=== PATIENT | female | born 1945 | race Caucasian/White ===

== ENCOUNTER → 2018-01-30 12:45 | Outpatient (CLI) | payer MEDICARE, OTHER, SELFPAY ==
[2018-01-28 14:23] VITALS: BMI 28.8
--- NOTE | 2018-01-30 12:47 | ECHOD_ITS ---
Reason For Study: Arrhythmia Procedure This was a 2D Doppler, Color Flow transthoracic echocardiogram. Exam performed in department. Left Ventricle Normal size and thickness. The estimated ejection fraction is 65 %. Stage 1 diastolic dysfunction. No regional wall motion abnormalities noted. Right Ventricle Normal size and thickness. Normal systolic function. Atria Normal left atrium. Normal right atrium. Normal atrial septum. Mitral Valve The mitral valve is structurally normal. No prolapse or stenosis seen. Trivial mitral valve insufficiency. Tricuspid Valve Normal tricuspid valve. Trivial tricuspid valve insufficiency. Right ventricular systolic pressure estimated to be 24 mmHg. Aortic Valve Trisinus/trileaflet aortic valve. Normal aortic valve. Pulmonic Valve Normal pulmonic valve. Great Vessels Normal aortic root. Normal arch. Normal inferior vena cava. Inferior vena cava collapse with sniff. Pericardium/Pleural No pericardial effusion. MMode/2D Measurements & Calculations LVIDd: 3.0 cm IVSd: 0.87 cm Ao root diam: 3.2 cm LVIDs: 2.1 cm LVPWd: 1.2 cm LA dimension: 2.8 cm RVDd: 3.2 cm FS: 31.2 % LAV(MOD-bp): 28.3 ml LA A4 area: 12.2 cm2 RA A4 area: 13.6 cm2 LAV(MOD-bp) Indexed: 16.0 ml/m2 LAV(MOD-sp2): 27.1 ml LAV(MOD-sp4): 27.0 ml Time Measurements MV dec time: 0.22 sec Doppler Measurements & Calculations MV E max gregg: 46.4 cm/sec Lat Peak E' Gregg: 6.3 cm/sec Med Peak E' Gregg: 5.8 cm/sec MV A max gregg: 88.4 cm/sec E/E' lat: 7.3 E/E' med: 8.0 MV E/A: 0.52 MV V2 max: 92.5 cm/sec MV P1/2t max gregg: 56.5 cm/sec Ao V2 max: 101.9 cm/sec MV max P.4 mmHg MV P1/2t: 75.1 msec Ao max P.2 mmHg MV V2 mean: 51.3 cm/sec MV dec slope: 220.4 cm/sec2 Ao V2 mean: 70.7 cm/sec MV mean P.3 mmHg MVA(P1/2t): 2.9 cm2 Ao mean P.2 mmHg MV V2 VTI: 16.7 cm Ao V2 VTI: 20.4 cm LV V1 max: 75.5 cm/sec PA V2 max: 77.8 cm/sec TR max gregg: 210.9 cm/sec LV V1 max P.3 mmHg TR max P.8 mmHg LV V1 mean P.0 mmHg LV V1 mean: 46.0 cm/sec LV V1 VTI: 18.5 cm Interpretation Summary The estimated ejection fraction is 65 %. Stage 1 diastolic dysfunction. Trivial mitral valve insufficiency. Trivial tricuspid valve insufficiency. Right ventricular systolic pressure estimated to be 24 mmHg. There is no comparison study available. Ordering Physician: Romeo Asencio Referring Physician: Meri Machado Performed By: Suman Carroll, [facility]
[2018-01-30 14:47] LABS: AST(SGOT) 16 U/L (15-37); Alanine Aminotransfer ALT/SGPT 32 U/L (13-56); Albumin, Serum 3.9 g/dL (3.2-5.0); Alkaline Phosphatase 41 U/L (45-117); Bilirubin, Direct 0.12 mg/dL (0.00-0.30); Cholesterol 285 mg/dL (200); Globulin 3.7 g/dL (2.2-4.2); High Density Lipoprotein 41 mg/dL; Protein, Total 7.6 g/dL (6.4-8.2); Triglycerides 180 mg/dL; Very Low Density Lipoprotein 36 mg/dL (5-40)
--- OUTSIDE RECORDS SUMMARY | 2018-03-27 16:10 | XMS RPT_ITS ---
:1945 Author Organization [facility] Care Team Providers Name Role Phone MERI ANDRE Referring Unavailable MERI ANDRE Attending Unavailable MERI ANDRE Referring Unavailable MERI ANDRE Referring Unavailable TYLER HDZ Attending Unavailable TYLER HDZ Referring Unavailable JOSHUA SUTTON ([facility]) Referring Unavailable MIRTA LEOS ([facility]) Attending Unavailable MERI ANDRE Attending Unavailable NICOLE BETANCOURT PAC Admitting Unavailable NICOLE BETANCOURT PAC Attending Unavailable NICOLE BETANCOURT PAC Primary Care Unavailable Nato Chaves Attending Unavailable Nato Chaves Referring Unavailable Ganta, Meri Primary Care Unavailable Romeo Asencio Attending Unavailable Ganta, Meri Referring Unavailable Romeo Asencio Attending Unavailable Romeo Asencio Referring Unavailable Ganta, Meri Primary Care Unavailable Romeo Asencio Attending Unavailable Romeo Asencio Referring Unavailable Ganta, Meri Primary Care Unavailable Romeo Asencio Attending Unavailable Romeo Asencio Referring Unavailable Ganta, Meri Primary Care Unavailable Romeo Asencio Consulting Unavailable PROBLEMS PROBLEMS DATE TYPE CONDITION / CODE ATTENDING STATUS SOURCE 01/31/2018 Unknown R00.0 - Tachycardia, Romeo Asencio Active [place] unspecified / Community R00.0(ICD-10) Hospital Repository 01/31/2018 Unknown I10 - Essential Romeo Asencio Active [place] (primary) [facility] hypertension / Hospital I10(ICD-10) Repository 01/31/2018 Unknown Z01.810 - Encounter Romeo Asencio Active [place] for preprocedural [facility] cardiovascular Hospital examination / Repository Z01.810(ICD-10) 01/31/2018 Unknown E78.5 - Romeo Asencio Active [place] Hyperlipidemia, Community unspecified / Hospital E78.5(ICD-10) Repository 11/05/2017 Active Other abnormal and NA Active [place] inconclusive [facility] Main findings on [place] diagnostic imaging Repository of breast / R92.8(ICD-10) 10/16/2017 Active Encounter for NA Active [place] screening mammogram Clinic Main for malignant [place] neoplasm of breast / Repository Z12.31(ICD-10) 09/05/2017 Active 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) drug Clinic Main therapy / [place] Z79.899(ICD-10) Repository PROCEDURES PROCEDURES No Procedure Records FoundRESULTS RESULTS OPERATIVE REPORT Observed: 02/04/2018 Status: F Source: [place] 2:22 PM [facility] HOSPITAL REPOSITORY [facility] Medical Records Department [address] [place] [address] Operative Report 02/04/18 1158 MR#: [id number] Acct: [id number] Name: PHIL OLSEN Rep #: [id number] : 1945 72 From: Nato Chaves MD PCP: Meri Andre MD Status: REG [facility] Location: [place] [address]-1 Report of Operation Date of Procedure: 02/04/18 Pre-Operative Diagnosis: Right knee medial meniscus tear. Right knee medial tibial plateau stress fracture. Right knee chondromalacia. Left knee osteoarthritis Post-Operative Diagnosis: Right knee medial meniscus tear. Right knee medial tibial plateau stress fracture. Right knee chondromalacia. Right knee medial plica. Left knee osteoarthritis Surgery/Procedure Performed:: Arthroscopic right knee surgery. 1. Partial medial meniscectomy. 2. Patellofemoral and medial compartment chondroplasty. 3. Arthroscopic assisted fixation of the medial tibial plateau fracture. 4. Plica resection medial. 5. Left knee cortical steroid injection Description of Surgical Findings:: See operative report senior linux unix administrator: Jaime Hale Type of Anesthesia:: General Anesthesiologist: Zachariah Smiley Special Medications: 2 g Ancef Specimen's removed: None Estimated Blood Loss (mL): 5 Fluids Replaced: 1100 ml Description of Procedure: On the date of the procedure, the patient's L lower extremity was marked in the preoperative area. Patient was brought back to the operating room where they were transferred to the bed. Anesthesia assumed control of the C-spine airway and administered anesthetic. All bony prominences were identified and well-padded and the L leg was placed in the arthroscopic leg bailey. The contralateral leg was then draped over the bed and well-padded. There was padding underneath both sciatic nerves. The foot of the bed was then dropped and the L leg was prepped in a sterile fashion. The surgeon then scrubbed. Upon reentering the room, the operative leg was draped in a standard orthopedic fashion. A timeout was called, everyone agreed upon the side, the site, the procedure to be performed, patient's identity and antibiotics given. Incisions were marked out for the medial and lateral infrapatellar portals. Esmarch bandage was then used to exsanguinate the leg and tourniquet was placed at 250 mmHg. At this time, the lateral portal incision was made in a vertical fashion. The trocar was placed into the joint. The camera was then placed and the patellofemoral joint was visualized. The patella did appear to have grade 2-3 chondral changes. The trochlea appeared to have grade 1-2 chondral changes. We then directed our attention to the medial gutter where there was no foreign body was noted however, and it getting over to the medial compartment and gutter we did note a large medial plica.. Then directed our attention to the medial joint compartment. There were grade 2 chondral changes on the medial distal femur, grade 3 with areas of grade 4 posterior medially chondral changes on the medial tibial plateau. The medial meniscus had Plex tear of the posterior medial meniscus. The medial portal was then placed under direct visualization using a spinal needle an 11 blade scalpel. Once this was done a probe was placed in the joint and the meniscus was probed finding the complex tear. There were cartilage flaps in the medial distal femoral condyle with free edges. The biters and lalo were then used sequentially to debriding get rid of any free edges that could be a source of pain and catching in the meniscus tear. The shaver was then used to clean up the cartilage flaps with free edges back to stable edges. Once we felt medial meniscus tear was adequately debrided, we again visualized the joint and noted the meniscus tear was adequately debrided. Attention was then turned towards the notch where the anterior cruciate ligament was tacked. PCL was visualized and appeared intact. Attention was then directed towards the lateral compartment where the lateral distal femur had minimal chondral changes, the lateral proximal tibia had to chondral changes. The lateral meniscus had small tears. We then directed our attention to the lateral gutter, which was visualized and no free bodies were noted. At this time the wound was copiously irrigated out with normal saline with epinephrine. Based on the preoperative review of the patient's R knee MRI, the location of the bone marrow lesion, consistent with an insufficiency or stress fracture in the MTC was identified. Preoperative surgical planning allowed for determination of the optimal method for assessing the lesion. Intraoperatively, image fluoroscopy combined with bone targeting instrumentation from [employer] was used to guide surgical instruments into the proximity of the subchondral MTC fracture. The standard repair methodology was used to treat the subchondral bone defect in the MTC. Image fluoroscopy was utilized to confirm accurate insertion of the active port injection cannula into the subchondral fracture. After insertion, fracture stabilization was performed by injecting 2 cc of [employer] bone substitute material into the MTC. Image fluoroscopy was used to monitor the injection process and ensure injection of the bone substitute into the subchondral bone so that the bile material flowed into the fracture site to stabilize the fracture and facilitate fracture repair. After this was performed the arthroscope was placed back into the knee and a diagnostic arthroscopy was performed to ensure no intra-articular cement was encountered. None was encountered. While we were made for the cement to cure we also performed a chondroplasty of the patellofemoral compartment. Also noted on our initial diagnostic arthroscopy was a medial plica. This was debrided using the shaver. Once this was completely removed we were able to see the medial compartment and lateral compartment where no evidence of cement was noted. Wound was sam irrigated out normal saline with epinephrine. The camera was removed from the knee. The wound was closed with 4-0 nylon and 0.5% Marcaine and epinephrine were injected for local anesthetic. Once the cement had appropriately cured the trocar was removed and the portal was closed. Xeroform was placed over the incision. Sterile dressing was placed. Compressive dressing was placed. Tourniquet was let down. At this time attention was directed to the left knee. Using the inferior lateral patellar portal to milliliters of Kenalog and 4 mL of Marcaine 0.5% were injected into the left knee. Sterile conditions were used. Patient was awakened by anesthesia patient was transferred to the PACU for recovery in stable condition. Postoperative plan: Patient will be made weightbearing for 2 weeks. He will come to the office in 2 weeks for postoperative wound check and suture removal. If he is doing well that time he can follow-up as needed. The physician pathology assistant was vital throughout the duration of this case. He was helpful in positioning the patient. Is helpful in positioning the limb during the procedure as well as during the fixation of the fracture. He was also vital and closure of the wound under my direct supervision. Grafts/Implants Used: [employer] bone cement 2 mL - Complications None - Admit VTE Documentation VTE Present on Admission: No VTE Mechan Device Prophylaxis: SCD's, Thigh High VANESSA Hose VTE Pharm Prophylaxis ordered?: Yes 02/04/18 1422 <Electronically signed by Nato Chaves MD> Date Nato Chaves MD CC: Meri Andre MD; Nato Chaves MD Signed KNEE 1 OR 2 VIEWS Observed: 02/04/2018 Status: F Source: [place] 4:16 AM [facility] REPOSITORY [facility] Imaging Services [address] [place] [address] Knee 1 or 2 Views MR#: [id number] Acct: [id number] Name: PHIL OLSEN Rep #: [id number] : 1945 F 72 From: Je Ramirez MD PCP: Meri Andre MD Status: [facility] Study: Knee 1 or 2 Views Date of Exam: 02/04/18 Exam# [id number] Ordering Dr: Nato Chaves MD STUDY: X-RAY - RIGHT KNEE REASON FOR EXAM: Female, 72 years old. Right knee arthroscopy TECHNIQUE: 1 view view(s) of the knee. COMPARISON: None. FINDINGS: The C-arm is used. There is a metallic density (nail) projecting over the proximal ends of the fibula and tibia and 2 curvilinear metallic densities (wires) projecting over the distal ends of the femur Electronically Signed: Je Ramirez MD at 5:39 EST Tel , Service support , RAD/Knee 1 or 2 Views CC: Meri Andre MD; Nato Chaves MD Flat Bed Knitter: Signed STRESS TEST ECHO W/O Observed: 02/03/2018 Status: F Source: [place] CONTRAST 9:42 AM [facility] REPOSITORY [facility] Cardiovascular Services [address] [place] [address] Stress Test Echo w/o Contrast MR#: [id number] Acct: [id number] Name: PHIL OLSEN Rep #: [id number] : 1945 72 From: Romeo Asencio MD Primary Care: Meri nAdre MD Status[facility] Ordering Dr: Romeo Asencio MD Sex: F C Reason For Study: Pre-Op Stress Results Protocol: Dobutamine Stress Echo Maximum Predicted HR: 150 bpm Target HR: 128 bpm % Maximum Predicted HR: 84 % DurationHeart Rate Stage (mm:ss) (bpm) BP Comment Baseline 88 153/88No Chest Pain DSE 10 MCG 3:02 90 138/86No Chest Pain DSE 20 MCG 3:00 109 153/86No Chest Pain DSE 30 MCG 3:00 118 171/74No Chest Pain DSE 40 MCG 2:19 126 151/79No Chest Pain Recovery 96 141/74No Chest Pain Stress Duration: 11:21 mm:ss Maximum Stress HR: 126 bpm METS: 1 Baseline Echocardiogram Findings The estimated ejection fraction is 65 %. Stress Echo Wall motion Data Resting WM Intermediate WM Stress WM Resting Wall Motion Wall Motion Stress No regional wall motion No regional wall motion abnormalities noted. abnormalities noted. EKG Data Normal intervals are noted. The patient was titrated from 10 mcg to a maximum of 40 mcg of dobutamine during the stress. The maximum heart rate attained was 129 beats per minute. This was 86% of maximum predicted heart rate. During dobutamine infusion, there were no ST or T wave changes noted to suggest ischemia. No arrhythmias noted. No clinical angina was noted. Interpretation Summary The estimated ejection fraction is 65 %. Normal, adequate, dobutamine echocardiogram. Negative for ischemia by EKG and echocardiographic criteria. No anginal symptoms noted. No arrhythmias noted. Appropriate blood pressure response to dobutamine. Final LVEF is 75%. Test terminated due to the attainment of target heart rate. No complications. Ordering Physician: Rmoeo Asencio Referring Physician: Romeo Asencio Performed By: Keli Mclaughlin, MEDINA, RVT 02/03/18 0942 Date Romeo Asencio MD CC: Meri Andre MD; Romeo Asencio MD Date Dictated: 01/31/18 1003 Date Transcribed: 02/03/18 0942 Flat Bed Knitter: Signed ECHOCARDIOGRAM COMPLETE Observed: 01/31/2018 Status: F Source: [place] 9:44 AM [facility] REPOSITORY [facility] Cardiovascular Services [address] [place] [address] Echo Complete 01/30/18 1251 MR#: [id number] Acct: [id number] Name: PHIL OLSEN Rep #: [id number] : 1945 72 From: Romeo Asencio MD Attending Dr: Romeo Asencio MD Status: REG CLI Ordering Dr: Romeo Asencio MD Date: 01/30/18 Location: [facility] Sex: F C Admitted: Reason For Study: Arrhythmia Procedure This was a 2D Doppler, Color Flow transthoracic echocardiogram. Exam performed in department. Left Ventricle Normal size and thickness. The estimated ejection fraction is 65 %. Stage 1 diastolic dysfunction. No regional wall motion abnormalities noted. Right Ventricle Normal size and thickness. Normal systolic function. Atria Normal left atrium. Normal right atrium. Normal atrial septum. Mitral Valve The mitral valve is structurally normal. No prolapse or stenosis seen. Trivial mitral valve insufficiency. Tricuspid Valve Normal tricuspid valve. Trivial tricuspid valve insufficiency. Right ventricular systolic pressure estimated to be 24 mmHg. Aortic Valve Trisinus/trileaflet aortic valve. Normal aortic valve. Pulmonic Valve Normal pulmonic valve. Great Vessels Normal aortic root. Normal arch. Normal inferior vena cava. Inferior vena cava collapse with sniff. Pericardium/Pleural No pericardial effusion. MMode/2D Measurements AND Calculations LVIDd: 3.0 cm IVSd: 0.87 cm Ao root diam: 3.2 cm LVIDs: 2.1 cm LVPWd: 1.2 cm LA dimension: 2.8 cm RVDd: 3.2 cm FS: 31.2 % LAV(MOD-bp): 28.3 ml LA A4 area: 12.2 cm2 RA A4 area: 13.6 cm2 LAV(MOD-bp) Indexed: 16.0 ml/m2 LAV(MOD-sp2): 27.1 ml LAV(MOD-sp4): 27.0 ml Time Measurements MV dec time: 0.22 sec Doppler Measurements AND Calculations MV E max gregg: 46.4 cm/sec Lat Peak E' Gregg: 6.3 cm/sec Med Peak E' Gregg: 5.8 cm/sec MV A max gregg: 88.4 cm/sec E/E' lat: 7.3 E/E' med: 8.0 MV E/A: 0.52 MV V2 max: 92.5 cm/sec MV P1/2t max gregg: 56.5 cm/sec Ao V2 max: 101.9 cm/sec MV max P.4 mmHg MV P1/2t: 75.1 msec Ao max P.2 mmHg MV V2 mean: 51.3 cm/sec MV dec slope: 220.4 cm/sec2 Ao V2 mean: 70.7 cm/sec MV mean P.3 mmHg MVA(P1/2t): 2.9 cm2 Ao mean P.2 mmHg MV V2 VTI: 16.7 cm Ao V2 VTI: 20.4 cm LV V1 max: 75.5 cm/sec PA V2 max: 77.8 cm/sec TR max gregg: 210.9 cm/sec LV V1 max P.3 mmHg TR max P.8 mmHg LV V1 mean P.0 mmHg LV V1 mean: 46.0 cm/sec LV V1 VTI: 18.5 cm Interpretation Summary The estimated ejection fraction is 65 %. Stage 1 diastolic dysfunction. Trivial mitral valve insufficiency. Trivial tricuspid valve insufficiency. Right ventricular systolic pressure estimated to be 24 mmHg. There is no comparison study available. Ordering Physician: Romeo Asencio Referring Physician: Meri Andre Performed By: Suman Carroll [facility] 01/31/18 0943 Date Romeo Asencio MD CC: Meri Andre MD; Romeo Asencio MD Date Dictated: 01/30/18 1251 Date Transcribed: 01/31/18 0943 Flat Bed Knitter: Signed LIVER PROFILE Collected: 01/30/2018 Status: F Source: [place] 1:59 PM [facility] REPOSITORY TYPE CODE TESTS RESULT OUT OF RANGE REFERENCE UNITS LAB L501.1500 6.4-8.2 g/dL Normal T PROT 7.6 LAB L501.1800 3.2-5.0 g/dL Normal ALB 3.9 LAB L501.1950 2.2-4.2 g/dL Normal GLOB 3.7 LAB L501.4100 15-37 U/L Normal AST 16 LAB L501.4305 45-117 U/L Low ALK P 41 LAB L501.4405 13-56 U/L Normal ALT 32 LAB L501.4600 0.20-1.00 mg/dL Normal T BILI 0.50 LAB L501.4700 0.00-0.30 mg/dL Normal D BILI 0.12 Performed By: #### L500.3400, L500.4100 #### [facility] [address] [place], [address] LIPID PROFILE Collected: 01/30/2018 Status: F Source: [place] 1:59 PM [facility] REPOSITORY TYPE CODE TESTS RESULT OUT OF RANGE REFERENCE UNITS LAB L501.4900 200 mg/dL High CHOL 285 Result Comment: <200 mg/dL Desirable 200-240 mg/dL Borderline >240 mg/dL High Risk LAB L501.5000 mg/dL Normal TRIG 180 Result Comment: The drugs N-Acetylcysteine and Metamizole may falsely depress this assay. Serum Triglycerides Reference Interval Normal <150 mg/dL Borderline high 150 - 199 mg/dL High 200 - 499 mg/dL Very High > or = 500 mg/dL LAB L501.6400 mg/dL Normal HDL 41 Result Comment: The drugs N-Acetylcysteine and Metamizole may falsely depress this assay. Reference Range HDL <40 mg/dL Low HDL Cholesterol HDL >or= 60 mg/dL High HDL Cholesterol LAB L501.6500 0-130 mg/dL High LDL 208 LAB L501.6600 5-40 mg/dL Normal VLDL 36 Performed By: #### L500.3400, L500.4100 #### [facility] [address] [place], [address] CARDIOLOGY VISIT Observed: 01/28/2018 Status: F Source: [place] REPORT 2:46 PM [facility] REPOSITORY [facility] [address] [place] [address] OFFICE VISIT Date of Service: 01/28/18 MR#: [id number] Acct: [id number] Name: PHIL OLSEN Rep #: [id number] : 1945 Provider: Romeo Asencio MD Age/Sex: 72/F Location: [place] Status: Signed HPI [facility] Chief Complaint: Cardiac risk stratification. Details: PHIL OLSEN, is a 72 F with a history of asthma, hyperlipidemia, fibromyalgia, hypertension who presents to the office today for cardiac risk stratification for left knee surgery early next week. Patient has a negative family history for premature coronary artery disease in fact most of her relatives lived to be older than 85 years old some of which reached 100. She denies any previous coronary disease, chest pain, angina, shortness of breath or dyspnea on exertion. She has known hypercholesterolemia and has declined statin based medications as she is worried about it interacting with her fibromyalgia. She has never had a stroke or TIA. Patient was found to have some tachycardia, and was initially placed on Cardizem therapy then Coreg was added for both hypertension and heart rate control which appears to have been successful. In our office today her blood pressure is 124/78, pulse is 88 and regular. Physical exam demonstrates clear lungs bilaterally, regular rate and rhythm, normal S1/S2, no S3 or S4. EKG dated 01/21/18 demonstrates normal sinus rhythm, normal axis, normal intervals. Her lipids reportedly as of 01/25/18 showed an LDL in the range between 180 and 200. 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 Is patient in pain?: No Allergies celecoxib [From Celebrex] Allergy (Verified 01/28/18 14:26) Itching fluticasone [From Advair Diskus] Allergy (Verified 01/28/18 14:26) Itching salmeterol [From Advair Diskus] Allergy (Verified 01/28/18 14:26) Itching adhesive tape Adverse Reaction (Verified 01/28/18 14:26) Rash Medications albuterol sulfate HFA 90 mcg/actuation aerosol inhaler 1 puff INHALATION Q6H PRN 01/27/18 [History Confirmed 01/28/18] carvedilol 3.125 mg tablet 3.125 mg PO BID 01/27/18 [History Confirmed 01/28/18] cetirizine 10 mg tablet 5 mg PO DAILY PRN 01/27/18 [History Confirmed 01/28/18] cholecalciferol (vitamin D3) 1,000 unit capsule 1,000 unit PO DAILY 01/27/18 [History Confirmed 01/28/18] diclofenac sodium 50 mg tablet,delayed release 50 mg PO BID PRN 01/27/18 [History Confirmed 01/28/18] fluocinolone 0.025 % topical ointment 1 applic TOPICAL .COMPLEX PRN 01/27/18 [History Confirmed 01/28/18] guaifenesin ER 1,200 mg tablet, extended release 12 hr 1,200 mg PO DAILY 01/27/18 [History Confirmed 01/28/18] ipratropium bromide 42 mcg (0.06 %) nasal spray 2 spray INTRANASAL BID 01/27/18 [History Confirmed 01/28/18] loratadine 10 mg tablet 10 mg PO DAILY 01/27/18 [History Confirmed 01/28/18] montelukast 10 mg tablet 10 mg PO DAILY tab 01/27/18 [History Confirmed 01/28/18] multivitamin tablet 1 tab PO DAILY 01/27/18 [History Confirmed 01/28/18] omeprazole 20 mg capsule,delayed release 20 mg PO DAILY 01/27/18 [History Confirmed 01/28/18] polyethylene glycol 3350 17 gram/dose oral powder 17 gm PO PRN PRN g 01/27/18 [History Confirmed 01/28/18] Diltiazem HCl [Tiazac] 240 mg PO DAILY 01/28/18 [History Confirmed 01/28/18] ipratropium bromide 0.03 % nasal spray 2 spray INTRANASAL BID-TID PRN 01/28/18 [History Confirmed 01/28/18] PFSH Medical History Asthma (Chronic) Hyperlipidemia (Chronic) Pre-operative cardiovascular examination (Acute) Hypertension (Chronic) Surgical History History of appendectomy (Chronic) History of colonoscopy (Chronic) History of discectomy (Chronic) History of esophagogastroduodenoscopy (EGD) (Chronic) History of eye surgery (Chronic) Family History Mother Uterine cancer Social History Smoking Status: Never smoker ROS Const Const: Positive for other (Needs preop eval for knee surgery: htn and some tachycardia); negative for weakness, body ache, fever(s), chills, frequent falls, night sweats, daytime sleepiness, difficulty sleeping, weight gain, weight loss, increased appetite, poor appetite, anorexia, fatigue, excessive sweating or headache(s) ENT ENT: Negative for headache(s) Cardio Chest Pain: No Palpitations: No (highest heart rate 100 but pt states she was upset) Edema: None Muscle aches with walking: None Neuro Neuro: Negative for weakness, frequent falls or headache(s) Endo Endo: Negative for fatigue or excessive sweating Cardiology Exam Const Appearance: cooperative, healthy appearing and no acute distress Nutritional Appearance: well nourished Orientation: alert, oriented x3 and oriented to person Head Head: normal to inspection, atraumatic and normocephalic Nose: external nose normal Face and Sinus: face symmetric Mouth: oral mucosae normal Eyes General: appearance normal, both eyes and all related structures Eyelids: eyelids normal Conjunctivae: conjunctivae normal Pupils: PERRL and normal by confrontation EOM: EOM intact bilaterally Neck Neck: normal visual inspection and full ROM Carotids: normal carotid upstroke Chest Chest inspection: normal inspection of the chest Auscultation: Bilateral: Clear to Auscultation Cardio Palpation: normal PMI Rate: regular rate Rhythm: regular rhythm Heart sounds: S1 normal and S2 normal GI GI: normal to inspection, no hepatosplenomegaly and bowel sounds present Neuro General: alert, oriented x3, awake, CN's II-XI intact bilaterally and moves all extremities Skin Skin: no rashes or lesions noted Extremities Pulses: Normal: Right Femoral Pulse, Left Femoral Pulse, Right Dorsalis Pedis Pulse, Left Dorsalis Pedis Pulse, Right Posterior Tibial Pulse, Left Posterior Tibial Pulse, Right Radial Pulse, Left Radial Pulse Lower Extremity Edema: None: Bilateral Psych Psychological: normal affect Assessment AND Plan 1. Pre-operative cardiovascular examination Z01.810 Plan 1. Preoperative stratification: The patient has several risk factors for coronary occlusive disease including age, hypertension, and hypercholesterolemia. She has been asymptomatic from a cardiac standpoint although her activity level is somewhat limited due to her bilateral knee issues. She is slated to undergo arthroscopic knee surgery this upcoming Saturday. I recommended the patient undergo a 2D echo with Doppler, dobutamine echocardiogram, and a repeat lipid profile to further risk stratify her. If either 1 of these are grossly abnormal, the patient may require diagnostic coronary angiogram prior to her knee surgery. If her stress test is negative for inducible ischemia she will be deemed at low risk for noncardiac surgery and may proceed with surgery. She will need to hold her Coreg and diltiazem for her dobutamine echocardiogram. Orders Orders: 2. Hyperlipidemia E78.5 Plan 2. Hyperlipidemia: We are awaiting a repeat lipid profile as we do not have access to her official lipid profile. I have advised the patient that we can treat her lipids with gemfibrozil or Zetia if she does not wish to take statin based medications to avoid interfering with her fibromyalgia. Patient will think about it and let us know. 3. Return office in 6 months. This note was generated using a voice recognition system and there may be incorrect words, spelling or punctuation that were not noted when reviewing the office note prior to saving. Orders Orders: Plan Detail Other Orders Orders: Other Medications New: Follow Up +6M (Luis M) Coding Level of Care Code Off vis,new,level 4 Diagnoses Pre-operative cardiovascular examination Z01.810 Hyperlipidemia E78.5 Coding Level of Care Code Off vis,new,level 4 Diagnoses Pre-operative cardiovascular examination Z01.810 Hyperlipidemia E78.5 01/28/18 1446 <Electronically signed by Romeo Asencio MD> Date Romeo Asencio MD Cosign Signature: Date (if applicable) CC: Meri Andre MD PROGRESS Observed: 01/25/2018 Status: COMPLETED Source: [place] 12:07 PM [facility] [place] REPOSITORY O ID: [id number] Author: Meri Andre Service: (none) Author Type: Physician Type: Progress Notes Filed: 01/25/2018 1:25 PM Note Text: Reason for Visit Patient presents with: Surgical clearance Phil Olsen is a 72 year old female who presents here today for Above Complaints.. Health Maintenance BP CONTROLLED (<130/80) DTAP,TDAP,TD(1 - Tdap) INFLUENZA(1) HPI Phil is a 72 year old patient who is very pleasant but is very anxious when she comes in to see the doctors, and is not very comfortable around health care providers. She is here today for preop clearance. Cardiac:Denies chest pain or SOB, palpitations, syncope. We are concerned about his LDL which is very high , it is in the range of 180 to 200, her GDL is around 40 and she is not on a statin refuses to take it as she is concerned about side effects- that is one risk factor She used to take fish out but recently has stopped taking it. We do not know her exercise tolerance as she does not exercise due to hip, knee, back and foot pain. She does go up and down a flight of stair prior to 3 weeks ago, when she injured her ankle while vacationing in [place] that prompted this surgery. Today she has tachy cardia from anxiety and her bp is high again she notes because she is anxious, she does not like to tr medication ,but notes out of office her bp is normal but I do not have recent blood pressures which are optimum. Patient also has mild intermittent asthma, not on optimal medications as she cannot tolerate inhaled steroids so is only on rescue inhaler. Today her systolic bp is high and she is tachycardic. Denies taking otc medication, she is on voltaren which she needs to stop a week prior to surgery, she was informed of this. Had ekg..... and blood work which was not faxed over to me will have to get her records faxed over to me. No problem-specific Assessment AND Plan notes found for this encounter. PAST MEDICAL HISTORY Diagnosis Date - Myalgia and myositis, unspecified - Tumors of body of uterus, delivered, with mention of complication - Unspecified asthma(493.90) PAST SURGICAL HISTORY Procedure Laterality Date - APPENDECTOMY - COLONOSCOPY W/BX 09/30/09 melanosis coli - EGD W/O [facility] SPECIMEN W/BX 09/30/09 gastritis - PAST SURGICAL HISTORY OF 1999 discectomy - PAST SURGICAL HISTORY OF both eyes FAMILY HISTORY Problem Relation Age of Onset - Cancer Mother uterine Social History Substance Use Topics - Smoking status: Never Smoker - Smokeless tobacco: Never Used - Alcohol use No Past medical history, appointments, medications, allergies reviewed. Pertinent Lab/Diagnostic Studies are reviewed and discussed today Current Outpatient Prescriptions: - loratadine (CLARITIN) 10 mg tablet - diclofenac, EC, (VOLTAREN) 50 mg EC tablet - montelukast (SINGULAIR) 10 mg tablet - diltiazem CD (CARDIZEM CD, CARTIA XT) 240 mg 24 hr capsule - ipratropium bromide (ATROVENT) 42 mcg (0.06 %) nasal spray - albuterol HFA (PROVENTIL HFA, VENTOLIN HFA) 90 mcg/actuation inhaler - fluocinolone (SYNALAR) 0.025 % ointment - COMPOUNDED PRESCRIPTION - polyethylene glycol 3350 17 gram packet - vit A,C,W-Yqst-Fljgij 7,160-113-100 vjdm-ub-allf tab - guaiFENesin (MUCINEX) 1,200 mg TM12 - CHOLECALCIFEROL (VITAMIN D3) 1,000 UNIT CAP - omeprazole(PRILOSEC 20 MG CAP) - COMPOUNDED PRESCRIPTION - PERCOGESIC 30 MG-325 MG TAB - cetirizine (ZYRTEC) 10 mg tablet Review of Systems CONSTITUTIONAL: No fevers, chills night sweats, unintended weight loss CARDIOVASCULAR: No chest pain, dyspnea, palpitations, orthopnea, PND, ankle edema. PULM: No dyspnea, unexplained cough. GI: No dysphagia/odynophagia, problematic reflux, constipation, diarrhea, changes in stool habits, hematochezia, melena. : No new urinary complaints, including dysuria, gross hematuria or pyuria. NEURO: No new balance problems, peripheral weakness/paresthesias or numbness of concern. Physical Exam BP 138/82 (BP Site: Left Arm, BP Position: Sitting, BP Cuff Size: Regular Adult) Pulse 100 Temp 36.7 ?C (98 ?F) (Left Tympanic) Resp 18 Ht 161.3 cm (5' 3.5) Wt 76.5 kg (168 lb 12 oz) BMI 29.42 kg/m? General appearance: Well appearing, alert, in no acute distress, well nourished. Skin: Skin color, texture, turgor normal, no suspicious rashes or lesions Head: Normocephalic, no masses, lesions, tenderness or abnormalities Eyes: Anicteric sclera. Pupils are equally round and reactive to light. Extraocular movements are intact. Lungs: Lungs clear to auscultation. No wheezing, rhonchi, rales Heart: RRR without murmur, gallop, or rubs. Extremities: No deformities, edema, skin discoloration, clubbing or cyanosis. Good capillary refill. ASSESSMENT/PLAN: 1. Preoperative clearance - ICD9: V72.84, ICD10: Z01.818 (primary diagnosis) Patient Is reluctant to get a stress test, I need to get records of below blood work which patient notes she had done in [facility] for the surgery This is an intermediate risk procedure , Patient herself, has risk factors as she has very high ldl cholesterol, and bp is not controlled, and has tachycardia we are starting on coreg. We do not know her exercise tolerance as she does not exercise due to hip, knee, back and foot pain. Since she is hesitant to get the stress test for these reason, I would like her to see the green prize packer. - COMP METABOLIC PANEL - CBC + DIFF - ECG COMPLETE W INTERPRETATION - CONSULT TO CARDIOLOGY 2. Mild intermittent asthma without complication - ICD9: 493.90, ICD10: J45.20 See hpi - IPRATROPIUM BROMIDE 42 MCG (0.06 %) NASAL SPRAY - ALBUTEROL SULFATE HFA 90 MCG/ACTUATION AEROSOL INHALER 3. Essential hypertension - ICD9: 401.9, ICD10: I10 - good control - Recommended regular aerobic exercise. - Recommend home blood pressure monitoring, to bring results in on next visit - Goal of BP <130/80 - CARVEDILOL 3.125 MG TABLET - CONSULT TO CARDIOLOGY MERI ANDRE MD CNOV Observed: 01/25/2018 Status: COMPLETED Source: [place] 11:40 AM [facility] REPOSITORY Office Visit (INTMWS) PHIL OLSEN ([id number]) 1945 F Date Time Provider Department 01/25/18 11:40 AM MERI ANDRE INTMWS During your visit today, we recorded the following information about you: Temperature Pulse Respiration Blood pressure 98 degrees 100/minute 18/minute 138/82 Weight Height 76.5 kg 1.613 m MERI ANDRE MD 01/25/2018 1:25 PM Signed Reason for Visit Patient presents with: Surgical clearance Phil Olsen is a 72 year old female who presents here today for Above Complaints.. Health Maintenance BP CONTROLLED (<130/80) DTAP,TDAP,TD(1 - Tdap) INFLUENZA(1) HPI Phil is a 72 year old patient who is very pleasant but is very anxious when she comes in to see the doctors, and is not very comfortable around health care providers. She is here today for preop clearance. Cardiac:Denies chest pain or SOB, palpitations, syncope. We are concerned about his LDL which is very high , it is in the range of 180 to 200, her GDL is around 40 and she is not on a statin refuses to take it as she is concerned about side effects- that is one risk factor She used to take fish out but recently has stopped taking it. We do not know her exercise tolerance as she does not exercise due to hip, knee, back and foot pain. She does go up and down a flight of stair prior to 3 weeks ago, when she injured her ankle while vacationing in [place] that prompted this surgery. Today she has tachy cardia from anxiety and her bp is high again she notes because she is anxious, she does not like to tr medication ,but notes out of office her bp is normal but I do not have recent blood pressures which are optimum. Patient also has mild intermittent asthma, not on optimal medications as she cannot tolerate inhaled steroids so is only on rescue inhaler. Today her systolic bp is high and she is tachycardic. Denies taking otc medication, she is on voltaren which she needs to stop a week prior to surgery, she was informed of this. Had ekg..... and blood work which was not faxed over to me will have to get her records faxed over to me. No problem-specific Assessment AND Plan notes found for this encounter. PAST MEDICAL HISTORY Diagnosis Date - Myalgia and myositis, unspecified - Tumors of body of uterus, delivered, with mention of complication - Unspecified asthma(493.90) PAST SURGICAL HISTORY Procedure Laterality Date - APPENDECTOMY - COLONOSCOPY W/BX 09/30/09 melanosis coli - EGD W/O [facility] SPECIMEN W/BX 09/30/09 gastritis - PAST SURGICAL HISTORY OF 2000 discectomy - PAST SURGICAL HISTORY OF both eyes FAMILY HISTORY Problem Relation Age of Onset - Cancer Mother uterine Social History Substance Use Topics - Smoking status: Never Smoker - Smokeless tobacco: Never Used - Alcohol use No Past medical history, appointments, medications, allergies reviewed. Pertinent Lab/Diagnostic Studies are reviewed and discussed today Current Outpatient Prescriptions: - loratadine (CLARITIN) 10 mg tablet - diclofenac, EC, (VOLTAREN) 50 mg EC tablet - montelukast (SINGULAIR) 10 mg tablet - diltiazem CD (CARDIZEM CD, CARTIA XT) 240 mg 24 hr capsule - ipratropium bromide (ATROVENT) 42 mcg (0.06 %) nasal spray - albuterol HFA (PROVENTIL HFA, VENTOLIN HFA) 90 mcg/actuation inhaler - fluocinolone (SYNALAR) 0.025 % ointment - COMPOUNDED PRESCRIPTION - polyethylene glycol 3350 17 gram packet - vit A,C,Y-Jljc-Xadiar 7,160-113-100 chev-rm-vzqs tab - guaiFENesin (MUCINEX) 1,200 mg TM12 - CHOLECALCIFEROL (VITAMIN D3) 1,000 UNIT CAP - omeprazole(PRILOSEC 20 MG CAP) - COMPOUNDED PRESCRIPTION - PERCOGESIC 30 MG-325 MG TAB - cetirizine (ZYRTEC) 10 mg tablet Review of Systems CONSTITUTIONAL: No fevers, chills night sweats, unintended weight loss CARDIOVASCULAR: No chest pain, dyspnea, palpitations, orthopnea, PND, ankle edema. PULM: No dyspnea, unexplained cough. GI: No dysphagia/odynophagia, problematic reflux, constipation, diarrhea, changes in stool habits, hematochezia, melena. : No new urinary complaints, including dysuria, gross hematuria or pyuria. NEURO: No new balance problems, peripheral weakness/paresthesias or numbness of concern. Physical Exam BP 138/82 (BP Site: Left Arm, BP Position: Sitting, BP Cuff Size: Regular Adult) Pulse 100 Temp 36.7 ?C (98 ?F) (Left Tympanic) Resp 18 Ht 161.3 cm (5' 3.5) Wt 76.5 kg (168 lb 12 oz) BMI 29.42 kg/m? General appearance: Well appearing, alert, in no acute distress, well nourished. Skin: Skin color, texture, turgor normal, no suspicious rashes or lesions Head: Normocephalic, no masses, lesions, tenderness or abnormalities Eyes: Anicteric sclera. Pupils are equally round and reactive to light. Extraocular movements are intact. Lungs: Lungs clear to auscultation. No wheezing, rhonchi, rales Heart: RRR without murmur, gallop, or rubs. Extremities: No deformities, edema, skin discoloration, clubbing or cyanosis. Good capillary refill. ASSESSMENT/PLAN: 1. Preoperative clearance - ICD9: V72.84, ICD10: Z01.818 (primary diagnosis) Patient Is reluctant to get a stress test, I need to get records of below blood work which patient notes she had done in [facility] for the surgery This is an intermediate risk procedure , Patient herself, has risk factors as she has very high ldl cholesterol, and bp is not controlled, and has tachycardia we are starting on coreg. We do not know her exercise tolerance as she does not exercise due to hip, knee, back and foot pain. Since she is hesitant to get the stress test for these reason, I would like her to see the green prize packer. - COMP METABOLIC PANEL - CBC + DIFF - ECG COMPLETE W INTERPRETATION - CONSULT TO CARDIOLOGY 2. Mild intermittent asthma without complication - ICD9: 493.90, ICD10: J45.20 See hpi - IPRATROPIUM BROMIDE 42 MCG (0.06 %) NASAL SPRAY - ALBUTEROL SULFATE HFA 90 MCG/ACTUATION AEROSOL INHALER 3. Essential hypertension - ICD9: 401.9, ICD10: I10 - good control - Recommended regular aerobic exercise. - Recommend home blood pressure monitoring, to bring results in on next visit - Goal of BP <130/80 - CARVEDILOL 3.125 MG TABLET - CONSULT TO CARDIOLOGY MERI ANDRE MD Referring Provider: SELF [[id number]] Allergies As of Date: 01/25/2018 Noted Allergy Reaction ADVAIR DISKUS (FLUTICASONE-SALMET*05/23/2005 CELEBREX (CELECOXIB) 05/22/2005 Date Reviewed: 01/25/2018 Reviewed by: Faith Mo LPN - Fully Assessed Reason for Visit: Surgical clearance [Other] Primary Visit Diagnosis:Preoperative clearance [Z01.818] Other Visit Diagnoses:Mild intermittent asthma without complication [J45.20] Essential hypertension [I10] Order(s):ipratropium bromide (ATROVENT) 42 mcg (0.06 %) nasal sprayUse 1 Divide in the nose twice daily.Disp: 1 BottleRfl: 12 albuterol HFA (PROVENTIL HFA, VENTOLIN HFA) 90 mcg/actuation inhalerInhale 2 Puffs as instructed four times daily as needed.Disp: 1 InhalerRfl: 12 COMP METABOLIC PANEL [SQCMP] Order #: [id number] FUTURE CBC + DIFF [SQCBCDIF] Order #: [id number] FUTURE carvedilol (COREG) 3.125 mg tabletTake 1 tablet by mouth twice daily with meals.Disp: 60 tabletRfl: 1 CONSULT TO CARDIOLOGY [1912] Order #: [id number]: 1 Prescriptions as of 01/25/2018 Sig: LORATADINE 10 MG TABLET Take 10 mg by mouth once john* IPRATROPIUM BROMIDE 42 MCG (0* Use 1 Divide in the nose twice* ALBUTEROL SULFATE HFA 90 MCG/* Inhale 2 Puffs as instructed * DICLOFENAC SODIUM 50 MG TABLE* Take 1 tablet by mouth twice * MONTELUKAST 10 MG TABLET Take 1 tablet by mouth once d* DILTIAZEM SR 240 MG 24 HR CAP Take 1 capsule by mouth once * FLUOCINOLONE 0.025 % TOPICAL * Use twice daily sparingly as * COMPOUNDED PRESCRIPTION Oil of oregano- a couple drops POLYETHYLENE GLYCOL 3350 17 G* Take 1 Packet by mouth once d* VITAMINS A,C,Q-RICZ-ULLQLT 7* Take by mouth. * GUAIFENESIN ER 1,200 MG TABLE* Take 1 tablet by mouth twice * Patient taking differently: Take 1 tablet by mouth once d* * CHOLECALCIFEROL (VITAMIN D3) * 2 caps daily Patient taking differently: 1 capsule daily * PRILOSEC 20 MG CAPSULE,DELAYE* Take one(1) capsule daily. * COMPOUNDED PRESCRIPTION relive program * PERCOGESIC 30 MG-325 MG TABLET as necessary CARVEDILOL 3.125 MG TABLET Take 1 tablet by mouth twice * * CETIRIZINE 10 MG TABLET Take 1 tablet by mouth once d* Patient not taking: Reported on 01/25/2018 Problem List As Of Date 01/25/2018 Noted Resolved Mild intermittent asthma without complication [*INVALID FOR* ESOPHAGEAL REFLUX [K21.9] INVALID FOR* Blood in stool [K92.1] INVALID FOR*09/19/2015 Unspecified, Hemorrhage of Gastrointestinal Tra*INVALID FOR* Hemorrhage of rectum and anus [K62.5] INVALID FOR*09/19/2015 Acute Gastritis without Mention of Hemorrhage [*INVALID FOR* Seborrheic Keratoses [L82.1] INVALID FOR* Milial Cysts [L72.0] INVALID FOR* Solar Lentigines [L81.4] INVALID FOR* Melanocytic nevi of trunk [D22.5] INVALID FOR* Actinic skin damage [L57.8] INVALID FOR* Eczema intertrigo [L30.4] INVALID FOR* Xerosis cutis [L85.3] INVALID FOR* Pruritus of skin [L29.9] INVALID FOR* Perianal cyst [K62.89] INVALID FOR* Hyperlipidemia [E78.5] INVALID FOR*11/10/2015 Allergic sinusitis [J30.9] INVALID FOR* Atopic rhinitis [J30.9] INVALID FOR*09/19/2015 Mixed hyperlipidemia [E78.2] INVALID FOR* Ocular migraine [G43.109] INVALID FOR* Prescriptions ordered this encounter Disp Refills Start End IPRATROPIUM BROMIDE 42 MCG (0.06 %) * 1 Shawn* 12 01/25/2018 Route: NASAL Sig: Use 1 Divide in the nose twice daily. ALBUTEROL SULFATE HFA 90 MCG/ACTUATI* 1 In* 12 01/25/2018 Route: INHALATION Sig: Inhale 2 Puffs as instructed four times daily as needed. CARVEDILOL 3.125 MG TABLET 60 t* 1 01/25/2018 Route: ORAL Sig: Take 1 tablet by mouth twice daily with meals. Medications Discontinued During This Encounter ipratropium bromide (ATROVENT) 42 mc* 1 Shawn* 12 02/20/2017 01/25/2018 Route: NASAL Sig: Use 1 Divide in the nose twice daily. Disc: Reason for discontinue is not on file. albuterol HFA (PROVENTIL HFA, VENTOL* 1 In* 12 02/19/2017 01/25/2018 Route: INHALATION Sig: Inhale 2 Puffs as instructed four times daily as needed. Disc: Reason for discontinue is not on file. Encounter Status:Closed by MERI ANDRE MD on 01/25/18 CBC Collected: 01/21/2018 Status: F Source: [place] [place] 1:25 PM [facility] REPOSITORY TYPE CODE TESTS RESULT OUT OF RANGE REFERENCE UNITS LAB CBC(LOINC) CBC Result Comment: CBC-COMPLETE BLOOD COUNT LAB WBC(LOINC) 4.5 - 10.8 x 10EE3/UL WBC 7.4 LAB RBC(LOINC) 4.10 - x 10EE6/UL 5.30 RBC 4.33 LAB HEMOGLOBIN(LOINC) 12.0 - g/dl 16.0 HEMOGLOBIN 13.0 LAB HEMATOCRIT(LOINC) 34.0 - % 46.0 HEMATOCRIT 38.0 LAB MCV(LOINC) 80 - 99 fl MCV 88 LAB MCH(LOINC) 27 - 33 pg MCH 30 LAB MCHC(LOINC) 32 - 36 X10 3 MCHC 34 LAB RDW/CV(LOINC) 12.0 - % 15.6 RDW/CV 13.5 LAB PLATELET(LOINC) 150 - 450 x10EE3/UL PLATELET 427 LAB MPV(LOINC) 6.6 - 10.5 fl MPV 8.1 Result Comment: AUTOMATED DIFFERENTIAL LAB NEUT %(LOINC) 46.0 - 76.0 % NEUT % 67.0 LAB LYMPH %(LOINC) 20.0 - 45.0 % LYMPH % 24.4 LAB MONOS %(LOINC) 0.0 - 10.0 % MONOS % 4.8 LAB EO %(LOINC) 0.0 - 7.0 % EO % 2.8 LAB BASO %(LOINC) 0.0 - 2.0 % BASO % 1.0 LAB Lymph #(LOINC) 0.80 - 2.80 x10EE3/U L Lymph # 1.80 LAB Neut #(LOINC) 1.50 - 7.10 x10EE3/U L Neut # 5.00 LAB [place] #(LOINC) 0.20 - 1.00 x10EE3/U L [place] # 0.40 LAB EO #(LOINC) 0.00 - 0.50 x10EE3/U L EO # 0.20 LAB Baso #(LOINC) 0.00 - 0.10 x10EE3/U L Baso # 0.10 LAB MANUAL DIFF(LOINC) MANUAL DIFF N/A LAB MORPHOLOGY(LOINC ) MORPHOLOGY N/A Result Comment: {CD] Performed By: #### [id number] #### [facility],[address] [place], [place] [id number] BMP WITH EGFR Collected: 01/21/2018 Status: F Source: [facility] 1:25 PM [facility] REPOSITORY TYPE CODE TESTS RESULT OUT OF RANGE REFERENCE UNITS LAB BMP with eGFR(LOINC) BMP with eGFR Result Comment: BASIC METABOLIC PANEL LAB SODIUM(LOINC) 136 - 145 mmol/l SODIUM 140 LAB POTASSIUM(LOINC) 3.5 - 5.1 mmol/L POTASSIUM 3.8 LAB CHLORIDE(LOINC) 98 - 107 mmol/L CHLORIDE 102 LAB CO2(LOINC) 21.0 - mmol/L 31.0 CO2 29.7 LAB GLUCOSE(LOINC) 74 - 106 mg/dl GLUCOSE High 124 LAB BUN(LOINC) 6 - 20 mg/dl BUN 17 LAB CREATININE(LOINC) 0.6 - 1.2 mg/dl CREATININE 0.9 LAB CALCIUM(LOINC) 8.6 - mg/dl 10.2 CALCIUM 9.5 LAB ANION GAP(LOINC) 10 - 20 mmol/L ANION GAP 12 LAB AGE(LOINC) years AGE 72 LAB eGFR(LOINC) 60 - 999 ML/MINUTE eGFR >60 LAB eGFR(AA)(LOINC) 60 - 999 ML/MINUTE eGFR(AA) >60 Result Comment: ACCORDING TO THE NATIONAL KIDNEY DISEASE EDUCATION PROGRAM(NKDE), A NORMAL eGFR IS A VALUE GREATER THAN OR EQUAL TO 60 ML/MIN/1.73 SQ METERS. CHRONIC KIDNEY DISEASE: <60mL/MIN/1.73 SQ METERS KIDNEY FAILURE: <15mL/MIN/1.73 SQ METERS THIS TEST SHOULD ONLY BE USED FOR PATIENTS 18 YEARS OF AGE AND OLDER. Performed By: #### [id number] #### [facility],[address] [place], [place] [id number] PROGRESS Observed: 12/31/2017 Status: COMPLETED Source: [place] 1:42 PM [facility] REPOSITORY HNO ID: [id number] Author: Mirta (Queta) Older Service: (none) Author Type: Nurse Practitioner Type: Progress Notes Filed: 12/31/2017 2:01 PM Note Text: CC Patient presents with: Blood Pressure HPI Phil Olsen is a 72 year old female who presents to the office for blood pressure. Her visit today is for evaluation. No history of hypertension. Decided to check BP at home yesterday and this morning, 140's over 80's both times. She is leaving tomorrow for [place] and wanted to make sure her BP was okay. Admits to a lot of anxiety and stress due to knee issues and walking around airport possibly making pain worse. Symptoms referable to elevated blood pressure (headache, chest pain, palpitations, dyspnea, peripheral edema, fatigue, blurred vision): No Last 4 Encounter BP Readings: Date: BP: 12/31/2017 140/80 10/16/2017 122/72 09/12/2017 136/64 08/01/2016 132/74 Last 3 Encounter Wt Readings: Date: Wt: 12/31/2017 76.2 kg (168 lb) 10/16/2017 75.6 kg (166 lb 9.6 oz) 09/12/2017 73.9 kg (163 lb) Diet: no changes Caffeine: 2 servings daily Water intake: adequagte Alcohol intake: None Smoker: No Frequent NSAID use: Yes Voltaren for knee pain Decongestants: No REVIEW OF SYSTEMS See HPI PAST MEDICAL HISTORY Diagnosis Date - Myalgia and myositis, unspecified - Tumors of body of uterus, delivered, with mention of complication - Unspecified asthma(493.90) PAST SURGICAL HISTORY Procedure Laterality Date - APPENDECTOMY - COLONOSCOPY W/BX 09/30/09 melanosis coli - EGD W/O [facility] SPECIMEN W/BX 09/30/09 gastritis - PAST SURGICAL HISTORY OF 2000 discectomy - PAST SURGICAL HISTORY OF both eyes ALLERGIES Advair Diskus [Fluticasone-Salmeterol]; Celebrex [Celecoxib] MEDICATIONS diclofenac, EC, (VOLTAREN) 50 mg EC tablet Take 1 tablet by mouth twice daily. montelukast (SINGULAIR) 10 mg tablet Take 1 tablet by mouth once daily. diltiazem CD (CARDIZEM CD, CARTIA XT) 240 mg 24 hr capsule Take 1 capsule by mouth once daily. ipratropium bromide (ATROVENT) 42 mcg (0.06 %) nasal spray Use 1 Divide in the nose twice daily. albuterol HFA (PROVENTIL HFA, VENTOLIN HFA) 90 mcg/actuation inhaler Inhale 2 Puffs as instructed four times daily as needed. fluocinolone (SYNALAR) 0.025 % ointment Use twice daily sparingly as needed COMPOUNDED PRESCRIPTION Oil of oregano- a couple drops polyethylene glycol 3350 17 gram packet Take 1 Packet by mouth once daily. vit A,C,H-Vnlo-Omfkxz 7,160-113-100 ymmt-pa-jvki tab Take by mouth. guaiFENesin (MUCINEX) 1,200 mg TM12 Take 1 tablet by mouth twice daily. cetirizine (ZYRTEC) 10 mg tablet Take 1 tablet by mouth once daily. CHOLECALCIFEROL (VITAMIN D3) 1,000 UNIT CAP 2 caps daily omeprazole(PRILOSEC 20 MG CAP) Take one(1) capsule daily. COMPOUNDED PRESCRIPTION relive program PERCOGESIC 30 MG-325 MG TAB as necessary FAMILY HISTORY Problem Relation Age of Onset - Cancer Mother uterine Social History Substance Use Topics - Smoking status: Never Smoker - Smokeless tobacco: Never Used - Alcohol use No PHYSICAL EXAM BP 140/80 Pulse 107 Temp 36.7 ?C (98.1 ?F) (Temporal Artery) Resp 16 Wt 76.2 kg (168 lb) SpO2 95% BMI 29.40 kg/m? General Appearance: well appearing, in no acute distress, alert Pysch: affect is anxious Lungs: Lungs clear to auscultation. No wheezing, rhonchi, rales Heart: RRR without murmur, gallop, or rubs. No ectopy ASSESSMENT/PLAN: 1. Elevated blood pressure reading in office without diagnosis of hypertension - ICD9: 796.2, ICD10: R03.0 Likely due to anxiety, stress and frequent NSAID use. Reassurance given. - Encouraged dietary sodium restriction/DASH diet - Recommended regular aerobic exercise. - Recommend home blood pressure monitoring, to bring results in on next visit - Follow-up with PCP as recommended or sooner as needed Prescription instructions reviewed with patient as applicable. Potential red flag symptoms discussed with the patient. Reviewed appropriate action plan to take if red flag symptoms occur. Patient agreeable to treatment plan Mirta Leos APRN.QUETA CNOV Observed: 12/31/2017 Status: COMPLETED Source: [place] 1:40 PM [facility] MAIN [place] REPOSITORY Office Visit (INTMWS) PHIL OLSEN ([id number]) 1945 F Date Time Provider Department 12/31/17 1:40 PM OLDER, MIRTA (QUETA) INTMWS During your visit today, we recorded the following information about you: Temperature Pulse Respiration Blood pressure 98.1 degrees 107/minute 16/minute 134/82 Weight 76.2 kg Mirta Older, DRUG ROOM CLERKROQUE 12/31/2017 2:01 PM Signed CC Patient presents with: Blood Pressure HPI Phil Olsen is a 72 year old female who presents to the office for blood pressure. Her visit today is for evaluation. No history of hypertension. Decided to check BP at home yesterday and this morning, 140's over 80's both times. She is leaving tomorrow for [place] and wanted to make sure her BP was okay. Admits to a lot of anxiety and stress due to knee issues and walking around airport possibly making pain worse. Symptoms referable to elevated blood pressure (headache, chest pain, palpitations, dyspnea, peripheral edema, fatigue, blurred vision): No Last 4 Encounter BP Readings: Date: BP: 12/31/2017 140/80 10/16/2017 122/72 09/12/2017 136/64 08/01/2016 132/74 Last 3 Encounter Wt Readings: Date: Wt: 12/31/2017 76.2 kg (168 lb) 10/16/2017 75.6 kg (166 lb 9.6 oz) 09/12/2017 73.9 kg (163 lb) Diet: no changes Caffeine: 2 servings daily Water intake: adequagte Alcohol intake: None Smoker: No Frequent NSAID use: Yes Voltaren for knee pain Decongestants: No REVIEW OF SYSTEMS See HPI PAST MEDICAL HISTORY Diagnosis Date - Myalgia and myositis, unspecified - Tumors of body of uterus, delivered, with mention of complication - Unspecified asthma(493.90) PAST SURGICAL HISTORY Procedure Laterality Date - APPENDECTOMY - COLONOSCOPY W/BX 09/30/09 melanosis coli - EGD W/O BRSH SPECIMEN W/BX 09/30/09 gastritis - PAST SURGICAL HISTORY OF 2000 discectomy - PAST SURGICAL HISTORY OF both eyes ALLERGIES Advair Diskus [Fluticasone-Salmeterol]; Celebrex [Celecoxib] MEDICATIONS diclofenac, EC, (VOLTAREN) 50 mg EC tablet Take 1 tablet by mouth twice daily. montelukast (SINGULAIR) 10 mg tablet Take 1 tablet by mouth once daily. diltiazem CD (CARDIZEM CD, CARTIA XT) 240 mg 24 hr capsule Take 1 capsule by mouth once daily. ipratropium bromide (ATROVENT) 42 mcg (0.06 %) nasal spray Use 1 Divide in the nose twice daily. albuterol HFA (PROVENTIL HFA, VENTOLIN HFA) 90 mcg/actuation inhaler Inhale 2 Puffs as instructed four times daily as needed. fluocinolone (SYNALAR) 0.025 % ointment Use twice daily sparingly as needed COMPOUNDED PRESCRIPTION Oil of oregano- a couple drops polyethylene glycol 3350 17 gram packet Take 1 Packet by mouth once daily. vit A,C,L-Qccu-Xihdqd 7,160-113-100 vtct-yv-dgtp tab Take by mouth. guaiFENesin (MUCINEX) 1,200 mg TM12 Take 1 tablet by mouth twice daily. cetirizine (ZYRTEC) 10 mg tablet Take 1 tablet by mouth once daily. CHOLECALCIFEROL (VITAMIN D3) 1,000 UNIT CAP 2 caps daily omeprazole(PRILOSEC 20 MG CAP) Take one(1) capsule daily. COMPOUNDED PRESCRIPTION relive program PERCOGESIC 30 MG-325 MG TAB as necessary FAMILY HISTORY Problem Relation Age of Onset - Cancer Mother uterine Social History Substance Use Topics - Smoking status: Never Smoker - Smokeless tobacco: Never Used - Alcohol use No PHYSICAL EXAM BP 140/80 Pulse 107 Temp 36.7 ?C (98.1 ?F) (Temporal Artery) Resp 16 Wt 76.2 kg (168 lb) SpO2 95% BMI 29.40 kg/m? General Appearance: well appearing, in no acute distress, alert Pysch: affect is anxious Lungs: Lungs clear to auscultation. No wheezing, rhonchi, rales Heart: RRR without murmur, gallop, or rubs. No ectopy ASSESSMENT/PLAN: 1. Elevated blood pressure reading in office without diagnosis of hypertension - ICD9: 796.2, ICD10: R03.0 Likely due to anxiety, stress and frequent NSAID use. Reassurance given. - Encouraged dietary sodium restriction/DASH diet - Recommended regular aerobic exercise. - Recommend home blood pressure monitoring, to bring results in on next visit - Follow-up with PCP as recommended or sooner as needed Prescription instructions reviewed with patient as applicable. Potential red flag symptoms discussed with the patient. Reviewed appropriate action plan to take if red flag symptoms occur. Patient agreeable to treatment plan Mirta Leos APRN.HEALTH INFORMATION ASSISTANT Referring Provider: SELF [[id number]] Allergies As of Date: 12/31/2017 Noted Allergy Reaction ADVAIR DISKUS (FLUTICASONE-SALMET*05/23/2005 CELEBREX (CELECOXIB) 05/22/2005 Date Reviewed: 12/31/2017 Reviewed by: Emily Rodgers Oven Operator Automatic - Fully Assessed Reason for Visit: Blood Pressure [15] Primary Visit Diagnosis:Elevated blood pressure reading in office without diagnosis of hypertension [R03.0] Prescriptions as of 12/31/2017 Sig: DICLOFENAC SODIUM 50 MG TABLE* Take 1 tablet by mouth twice * MONTELUKAST 10 MG TABLET Take 1 tablet by mouth once d* DILTIAZEM SR 240 MG 24 HR CAP Take 1 capsule by mouth once * IPRATROPIUM BROMIDE 42 MCG (0* Use 1 Divide in the nose twice* ALBUTEROL SULFATE HFA 90 MCG/* Inhale 2 Puffs as instructed * FLUOCINOLONE 0.025 % TOPICAL * Use twice daily sparingly as * COMPOUNDED PRESCRIPTION Oil of oregano- a couple drops POLYETHYLENE GLYCOL 3350 17 G* Take 1 Packet by mouth once d* VITAMINS A,C,E-MFZZ-AHINHD 7* Take by mouth. * GUAIFENESIN ER 1,200 MG TABLE* Take 1 tablet by mouth twice * * CETIRIZINE 10 MG TABLET Take 1 tablet by mouth once d* * CHOLECALCIFEROL (VITAMIN D3) * 2 caps daily * PRILOSEC 20 MG CAPSULE,DELAYE* Take one(1) capsule daily. * COMPOUNDED PRESCRIPTION relive program * PERCOGESIC 30 MG-325 MG TABLET as necessary Problem List As Of Date 12/31/2017 Noted Resolved Mild intermittent asthma without complication [*INVALID FOR* ESOPHAGEAL REFLUX [K21.9] INVALID FOR* Blood in stool [K92.1] INVALID FOR*09/19/2015 Unspecified, Hemorrhage of Gastrointestinal Tra*INVALID FOR* Hemorrhage of rectum and anus [K62.5] INVALID FOR*09/19/2015 Acute Gastritis without Mention of Hemorrhage [*INVALID FOR* Seborrheic Keratoses [L82.1] INVALID FOR* Milial Cysts [L72.0] INVALID FOR* Solar Lentigines [L81.4] INVALID FOR* Melanocytic nevi of trunk [D22.5] INVALID FOR* Actinic skin damage [L57.8] INVALID FOR* Eczema intertrigo [L30.4] INVALID FOR* Xerosis cutis [L85.3] INVALID FOR* Pruritus of skin [L29.9] INVALID FOR* Perianal cyst [K62.89] INVALID FOR* Hyperlipidemia [E78.5] INVALID FOR*11/10/2015 Allergic sinusitis [J30.9] INVALID FOR* Atopic rhinitis [J30.9] INVALID FOR*09/19/2015 Mixed hyperlipidemia [E78.2] INVALID FOR* Ocular migraine [G43.109] INVALID FOR* Encounter Status:Closed by MIRTA LEOS CNP on 12/31/17 CNCO Observed: 11/05/2017 Status: COMPLETED Source: [place] 10:40 AM [facility]AMP[facility] REPOSITORY [facility] ID: [id number] Author: Mammography Coordinator Service: (none) Author Type: Physician Type: Letter Filed: 11/06/2017 11:31 PM Note Text: November 05, 2017 PID: [id number] Phil Olsen [address] [place] [address] Dear Ms. Olsen, We are pleased to inform you that the results of your recent breast imaging exam on 11/05/2017 are normal and we recommend that you return to your annual screening Mammography schedule. Early detection of cancer is very important. We also understand recommendations regarding breast cancer screening are controversial. Please discuss with your primary care provider which strategy is best for you and whether a mammogram is right for you. Your imaging studies and report will be kept on file at [facility] as part of your permanent medical record and are available for your continuing care. Thank you for allowing us to help in meeting your health care needs. Sincerely, Dr. Che Interpreting Radiologist [facility] (Return to Annual Mammogram schedule) [facility] Observed: 11/05/2017 Status: F Source: [place] 10:16 AM [facility] REPOSITORY * * *Final Report* * * DATE OF EXAM: Nov 05 2017 10:16AM [facility] [id number] - [facility] [place] [facility]IC [facility] / PROCEDURE REASON: Other abnormal and inconclusive findings on diagnostic imaging of breast * * * * Physician Interpretation * * * * RESULT: #[id number] - [facility] UNILATERAL LEFT DIGITAL DIAGNOSTIC MAMMOGRAM WITH CAD: 11/05/2017 HISTORY: Other Abnormal And Inconclusive Findings On Diagnostic Imaging Of Breast /priors available for comparison. RESULT: TECHNIQUE: The study was acquired using full field digital technology and interpreted from soft copy. Current study was also evaluated with a Computer Aided Detection (CAD). Comparison is made to exams dated: 10/16/2017 mammogram, 09/10/2016 mammogram, 09/09/2015 mammogram, and 08/24/2014 mammogram - [facility]. There are scattered fibroglandular elements in the left breast. There are benign calcifications in the left breast. Prior asymmetric density is no longer seen in the left breast. No significant masses, calcifications, or other findings are seen in the breast. IMPRESSION: BENIGN FINDING There is no mammographic evidence of malignancy. A 1 year screening mammogram is recommended. Adrian larose/tony:11/05/2017 10:40:07 Vacuum Furnace Operator: Babita ARAUJO(Buster)(Ralph), [facility] letter sent: Return to Annual Mammogram BI-RADS: 2 Benign finding Flat Bed Knitter: Tony Transcribe Date/Time: Nov 05 2017 10:16A Dictated by: ADRIAN CHE DO This examination was interpreted and the report reviewed and electronically signed by: ADRIAN CHE DO on Nov 05 2017 10:40AM EST [id number] PROGRESS Observed: 11/05/2017 Status: COMPLETED Source: [place] 10:12 AM [facility] REPOSITORY HNO ID: [id number] Author: Erinn Araujo Service: (none) Author Type: (none) Type: Progress Notes Filed: 11/05/2017 10:50 AM Note Text: Radiology Service Progress Note PATIENT NAME: Phil Olsen DATE OF SERVICE: November 05, 2017 TIME: 10:12 AM PATIENT IDENTITY VERIFICATION COMPLETED USING TWO (2) METHODS: Patient confirmed name verbally and Date of . PATIENT GENDER DATA: Female. status: : No status: NO. PATIENT RELEVANT IMPLANT DATA REVIEWED: Not Applicable RADIOLOGY DEPARTMENT: [facility] diag mammogram PERIPHERAL IV DATA: Not applicable SIGNED BY: Erinn Waller Rt November 05, 2017 10:12 AM CNCO Observed: 10/16/2017 Status: COMPLETED Source: [place] 2:10 PM [facility] REPOSITORY HNO ID: [id number] Author: Mammography Coordinator Service: (none) Author Type: Physician Type: Letter Filed: 10/17/2017 11:32 PM Note Text: October 16, 2017 PID: [id number] Phil Olsen [address] [place] [address] Dear Ms. Olsen, Your recent breast imaging exam on 10/16/2017 showed a possible finding that requires additional imaging studies for a complete evaluation. Most such findings are probably benign (not cancer). Please call [phone] or [phone] to schedule an appointment for your additional imaging if you have not already done so. Your breast images and report will be kept on file here as part of your permanent medical record and are available for your continuing care. Thank you for allowing us to help in meeting your health care needs. Sincerely, Dr. Pringle Interpreting Radiologist [facility] (Additional imaging) CNOV Observed: 10/16/2017 Status: COMPLETED Source: [place] 9:40 AM [facility] REPOSITORY Office Visit (WOOB) PHIL OLSEN ([id number]) 1945 F Date Time Provider Department 10/16/17 9:40 AM TYLER HDZ During your visit today, we recorded the following information about you: Blood pressure Weight Height 122/72 75.6 kg 1.61 m Tyler Hdz MD 10/16/2017 10:14 AM Signed Phil Olsen is a 71 year old who presents for her annual gynecologic exam without complaints. Postmenopausal: Yes Last Pap: 2016 normal HPV: N/A History of abnormal pap: No Last mammogram: today History of abnormal mammogram: Yes but normal on f/u Obstetric History T0 L3 SAB0 TAB0 Ectopic0 Multiple0 Live Births0 PAST MEDICAL HISTORY Diagnosis Date - Myalgia and myositis, unspecified - Tumors of body of uterus, delivered, with mention of complication - Unspecified asthma(493.90) PAST SURGICAL HISTORY Procedure Laterality Date - APPENDECTOMY - COLONOSCOPY W/BX 09/30/09 melanosis coli - EGD W/O BRSH SPECIMEN W/BX 09/30/09 gastritis - PAST SURGICAL HISTORY OF 2000 discectomy - PAST SURGICAL HISTORY OF both eyes FAMILY HISTORY Problem Relation Age of Onset - Cancer Mother uterine SOCIAL HISTORY Social History Substance Use Topics - Smoking status: Never Smoker - Smokeless tobacco: Never Used - Alcohol use Yes Comment: Seldom REVIEW OF SYSTEMS Abdomen: No abdominal pain, nausea, vomiting, diarrhea, or constipation. No bloating, early satiety, indigestion, or increased flatulence. Bladder: No dysuria, gross hematuria, urinary frequency, urinary urgency, or incontinence Breast: No breast lumps, nipple d/c, overlying skin changes, redness or skin retraction Allergies and current medication updated:Yes EXAM: There were no vitals taken for this visit. GENERAL: pleasant, female in no apparent distress BREAST: soft, non-tender, symmetric, no dominant mass, normal nipple-areolar complex, no lymphadenopathy and no nipple discharge CHEST: Normal inspiratory effort ABDOMEN: soft, non-tender and no masses PELVIC: external genitalia normal, no vulvar lesions, no cervical lesions, normal appearing perineal body and perianal region; cystocele; atrophic vagina BIMANUAL: uterus normal size, shape and consistency, no adnexal masses and non-tender RECTOVAGINAL: rectovaginal exam negative for any masses other than external hemorrhoids or nodularity. NEURO: alert and oriented x3,exam grossly non-focal EXTREMITIES: normal ASSESSMENT/PLAN: 1) Health maintenance: Pap/HPV screening no longer needed Mammogram today Nutrition, exercise and routine health maintenance exams reviewed. Colon cancer screening: up to date with screening BMD: followed by PCP, declines being ordered today 2) Follow up one year or sooner as needed 3) Cystocele AND atrophic vaginitis - patient not bothered AND declines treatment Tyler Hdz MD Referring Provider: TYLER HDZ [[id number]] Allergies As of Date: 10/16/2017 Noted Allergy Reaction ADVAIR DISKUS (FLUTICASONE-SALMET*05/23/2005 CELEBREX (CELECOXIB) 05/22/2005 Date Reviewed: 10/16/2017 Reviewed by: Tyler Hdz - Fully Assessed Reason for Visit: Yearly Exam [187] Primary Visit Diagnosis:Encounter for gynecological examination without abnormal finding [Z01.419] Other Visit Diagnosis:Encounter for screening mammogram for malignant neoplasm of breast [Z12.31] Order(s):[facility] [place] SCREENING [[id number]] Order #: [id number] FUTURE Prescriptions as of 10/16/2017 Sig: DICLOFENAC SODIUM 50 MG TABLE* Take 1 tablet by mouth twice * DILTIAZEM SR 240 MG 24 HR CAP Take 1 capsule by mouth once * ALPRAZOLAM 0.5 MG TABLET Take 1 tablet by mouth daily * MONTELUKAST 10 MG TABLET Take 1 tablet by mouth once d* IPRATROPIUM BROMIDE 42 MCG (0* Use 1 Divide in the nose twice* ALBUTEROL SULFATE HFA 90 MCG/* Inhale 2 Puffs as instructed * FLUOCINOLONE 0.025 % TOPICAL * Use twice daily sparingly as * COMPOUNDED PRESCRIPTION Oil of oregano- a couple drops POLYETHYLENE GLYCOL 3350 17 G* Take 1 Packet by mouth once d* VITAMINS A,C,N-AKIJ-TNVKRG 7* Take by mouth. * GUAIFENESIN ER 1,200 MG TABLE* Take 1 tablet by mouth twice * * CETIRIZINE 10 MG TABLET Take 1 tablet by mouth once d* * CHOLECALCIFEROL (VITAMIN D3) * 2 caps daily * PRILOSEC 20 MG CAPSULE,DELAYE* Take one(1) capsule daily. * COMPOUNDED PRESCRIPTION relive program * PERCOGESIC 30 MG-325 MG TABLET as necessary Problem List As Of Date 10/16/2017 Noted Resolved Mild intermittent asthma without complication [*INVALID FOR* ESOPHAGEAL REFLUX [K21.9] INVALID FOR* Blood in stool [K92.1] INVALID FOR*09/19/2015 Unspecified, Hemorrhage of Gastrointestinal Tra*INVALID FOR* Hemorrhage of rectum and anus [K62.5] INVALID FOR*09/19/2015 Acute Gastritis without Mention of Hemorrhage [*INVALID FOR* Seborrheic Keratoses [L82.1] INVALID FOR* Milial Cysts [L72.0] INVALID FOR* Solar Lentigines [L81.4] INVALID FOR* Melanocytic nevi of trunk [D22.5] INVALID FOR* Actinic skin damage [L57.8] INVALID FOR* Eczema intertrigo [L30.4] INVALID FOR* Xerosis cutis [L85.3] INVALID FOR* Pruritus of skin [L29.9] INVALID FOR* Perianal cyst [K62.89] INVALID FOR* Hyperlipidemia [E78.5] INVALID FOR*11/10/2015 Allergic sinusitis [J30.9] INVALID FOR* Atopic rhinitis [J30.9] INVALID FOR*09/19/2015 Mixed hyperlipidemia [E78.2] INVALID FOR* Ocular migraine [G43.109] INVALID FOR* Disposition: Return in about 1 year (around 10/16/2018) for Routine TRUCK DRIVER FLATBED exam. Follow-up and Disposition History Recorded Encounter Status:Closed by TYLER HDZ MD on 10/16/17 [facility] S[facility] Observed: 10/16/2017 Status: F Source: [place] 9:30 AM [facility] MA[facility]AMPUS REPOSITORY * * *Final Report* * * DATE OF EXAM: Oct 16 2017 9:30AM [facility]81 - [facility] [place] SCREENING / PROCEDURE REASON: Encounter for screening mammogram for malignant neoplasm of breast * * * * Physician Interpretation * * * * RESULT: #[id number] - [facility] [place] [place] SCREEN[facility] BILATERAL DIGITAL SCREENING MAMMOGRAM WITH CAD: 10/16/2017 HISTORY: Encounter For Screening Mammogram For Malignant Neoplasm Of Breast /patient reports no breast symptoms /priors available for comparison. RESULT: TECHNIQUE: The study was acquired using full field digital technology and interpreted from soft copy. Current study was also evaluated with a Computer Aided Detection (CAD). Comparison is made to exams dated: 09/10/2016 mammogram, 09/09/2015 mammogram, and 08/24/2014 mammogram - [facility]. There are scattered fibroglandular elements in both breasts. There are benign calcifications in the left breast. There is a focal asymmetry in the left breast lower inner aspect anterior depth. No other significant masses, calcifications, or other findings are seen in either breast. IMPRESSION: INCOMPLETE: NEEDS ADDITIONAL IMAGING EVALUATION The focal asymmetry in the left breast is indeterminate. Additional views are recommended. Leeann deshpande/tony:10/16/2017 14:10:18 Vacuum Furnace Operator: Babita TSANG)(Ralph), [facility] letter sent: Additional Imaging Needed Mammogram BI-RADS: 0 Incomplete: needs additional imaging evaluation If this report indicates you need additional imaging, and it has NOT yet been performed, please call , to schedule. We sincerely thank you for choosing the [facility] for your breast imaging needs. Flat Bed Knitter: Tony Transcribe Date/Time: Oct 16 2017 9:07A Dictated by: LEEANN PRINGLE MD This examination was interpreted and the report reviewed and electronically signed by: LEEANN PRINGLE MD on Oct 16 2017 2:10PM EST [id number] Observed: 10/16/2017 Status: COMPLETED Source: [place] 9:24 AM [facility] REPOSITORY HNO ID: [id number] Author: Tyler Hdz Service: (none) Author Type: Physician Type: Progress Notes Filed: 10/16/2017 10:14 AM Note Text: Phil Olsen is a 71 year old who presents for her annual gynecologic exam without complaints. Postmenopausal: Yes Last Pap: 2016 normal HPV: N/A History of abnormal pap: No Last mammogram: today History of abnormal mammogram: Yes but normal on f/u Obstetric History T0 L3 SAB0 TAB0 Ectopic0 Multiple0 Live Births0 PAST MEDICAL HISTORY Diagnosis Date - Myalgia and myositis, unspecified - Tumors of body of uterus, delivered, with mention of complication - Unspecified asthma(493.90) PAST SURGICAL HISTORY Procedure Laterality Date - APPENDECTOMY - COLONOSCOPY W/BX 09/30/09 melanosis coli - EGD W/O BRSH SPECIMEN W/BX 09/30/09 gastritis - PAST SURGICAL HISTORY OF 2000 discectomy - PAST SURGICAL HISTORY OF both eyes FAMILY HISTORY Problem Relation Age of Onset - Cancer Mother uterine SOCIAL HISTORY Social History Substance Use Topics - Smoking status: Never Smoker - Smokeless tobacco: Never Used - Alcohol use Yes Comment: Seldom REVIEW OF SYSTEMS Abdomen: No abdominal pain, nausea, vomiting, diarrhea, or constipation. No bloating, early satiety, indigestion, or increased flatulence. Bladder: No dysuria, gross hematuria, urinary frequency, urinary urgency, or incontinence Breast: No breast lumps, nipple d/c, overlying skin changes, redness or skin retraction Allergies and current medication updated:Yes EXAM: There were no vitals taken for this visit. GENERAL: pleasant, female in no apparent distress BREAST: soft, non-tender, symmetric, no dominant mass, normal nipple-areolar complex, no lymphadenopathy and no nipple discharge CHEST: Normal inspiratory effort ABDOMEN: soft, non-tender and no masses PELVIC: external genitalia normal, no vulvar lesions, no cervical lesions, normal appearing perineal body and perianal region; cystocele; atrophic vagina BIMANUAL: uterus normal size, shape and consistency, no adnexal masses and non-tender RECTOVAGINAL: rectovaginal exam negative for any masses other than external hemorrhoids or nodularity. NEURO: alert and oriented x3,exam grossly non-focal EXTREMITIES: normal ASSESSMENT/PLAN: 1) Health maintenance: Pap/HPV screening no longer needed Mammogram today Nutrition, exercise and routine health maintenance exams reviewed. Colon cancer screening: up to date with screening BMD: followed by PCP, declines being ordered today 2) Follow up one year or sooner as needed 3) Cystocele AND atrophic vaginitis - patient not bothered AND declines treatment Tyler Hdz MD PROGRESS Observed: 10/16/2017 Status: COMPLETED Source: [place] 9:20 AM [facility] REPOSITORY O ID: [id number] Author: Erinn Araujo Service: (none) Author Type: (none) Type: Progress Notes Filed: 10/16/2017 9:21 AM Note Text: Radiology Service Progress Note PATIENT NAME: Phil Olsen DATE OF SERVICE: October 16, 2017 TIME: 9:20 AM PATIENT IDENTITY VERIFICATION COMPLETED USING TWO (2) METHODS: Patient confirmed name verbally and Date of . PATIENT GENDER DATA: Female. status: : No status: NO. PATIENT RELEVANT IMPLANT DATA REVIEWED: Not Applicable RADIOLOGY DEPARTMENT: [facility] mammogram PERIPHERAL IV DATA: Not applicable SIGNED BY: Erinn Araujo October 16, 2017 9:20 AM PROGRESS Observed: 09/12/2017 Status: COMPLETED Source: [place] 10:28 AM [facility] REPOSITORY HNO ID: [id number] Author: Meri Andre Service: (none) Author Type: Physician Type: Progress Notes Filed: 09/12/2017 1:09 PM Note Text: Welcome To Medicare Visit Medical B eligibility date age 68 Date of last exam none in the past year PAST MEDICAL HISTORY Diagnosis Date - Myalgia and myositis, unspecified - Tumors of body of uterus, delivered, with mention of complication - Unspecified asthma(493.90) PAST SURGICAL HISTORY Procedure Laterality Date - APPENDECTOMY - COLONOSCOPY W/BX 09/30/09 melanosis coli - EGD W/O BRSH SPECIMEN W/BX 09/30/09 gastritis - PAST SURGICAL HISTORY OF 2000 discectomy - PAST SURGICAL HISTORY OF both eyes Advair Diskus [Fluticasone-Salmeterol]; Celebrex [Celecoxib] Medications reviewed: Yes FAMILY HISTORY Problem Relation Age of Onset - Cancer Mother uterine SOCIAL HISTORY: Social History Marital status: Spouse name: Ramiro Years of education: Number of children: 3 Occupational History Occupation Employer Comment Retired Social History Main Topics Smoking status: Never Smoker Smokeless tobacco: Never Used Alcohol use: Yes Comment: Seldom Drug use: No Sexual activity: Yes Partners with: Male Phil denies regular aerobic exercise because of her back . She watches her diet for sodium, low fat and low cholesterol most of the time. List of current specialists seen: Eye- Dr Mcdonald in [place] 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 Depression screen She in the past two weeks denies having felt down, depressed, hopeless or with little interest or pleasure in doing things. Functional Ability/Safety Screen 1. Was the patient's timed Up and Go test unsteady or longer than 30 seconds? No 2. Does the patient need help with the phone, transportation, shopping,preparing meals, housework, laundry, medications or managing money? No 3. Does your home have rugs in the hallway, lack of grab bars in the bathroom, lack of handrails on the stairs or have poor lighting? No Hearing Evaluation: normal PHYSICAL EXAM BP 136/64 (BP Site: Left Arm, BP Position: Sitting, BP Cuff Size: Regular Adult) Pulse 97 Resp 12 Ht 160 cm (5' 3) Wt 73.9 kg (163 lb) SpO2 96% BMI 28.87 kg/m? Alert and oriented X 3: YES Body mass index is 28.87 kg/m?. Visual acuity: normal, she has macular degeneration so she has to keep checking it. ASSESSMENT/PLAN: 71 year old female The following prevention plan was discussed during the office visit and provided to the patient: - Glaucoma screening - Lipid panel MERI ANDRE MD Reason for Visit Patient presents with: Established Patient: medicare wellness visit Phil Olsen is a 71 year old female who presents here today for Above Complaints.. Health Maintenance DTAP,TDAP,TD(1 - Tdap) ZOSTER VACCINE (SHINGRIX)(1 of 2) MAMMOGRAM HPI Her LDL is 181, HDL is 40 and total is 261, she does not want to a statin at all. Says she has longevity on dad and Moms side and heart disease, Stroke does not run in her family. One aunt did have a stroke. These was a little improvement in the lipids but she notes she had been on a fast from foods that were cookies or pastries or other desserts type of foods. Asthma is well controlled in this weather No problem-specific Assessment AND Plan notes found for this encounter. PAST MEDICAL HISTORY Diagnosis Date - Myalgia and myositis, unspecified - Tumors of body of uterus, delivered, with mention of complication - Unspecified asthma(493.90) PAST SURGICAL HISTORY Procedure Laterality Date - APPENDECTOMY - COLONOSCOPY W/BX 09/30/09 melanosis coli - [facility] 09/30/09 gastritis - PAST SURGICAL HISTORY OF 2000 discectomy - PAST SURGICAL HISTORY OF both eyes FAMILY HISTORY Problem Relation Age of Onset - Cancer Mother uterine Social History Substance Use Topics - Smoking status: Never Smoker - Smokeless tobacco: Never Used - Alcohol use Yes Comment: Seldom Past medical history, appointments, medications, allergies reviewed. Pertinent Lab/Diagnostic Studies are reviewed and discussed today Current Outpatient Prescriptions: - montelukast (SINGULAIR) 10 mg tablet - diclofenac, EC, (VOLTAREN) 50 mg EC tablet - ipratropium bromide (ATROVENT) 42 mcg (0.06 %) nasal spray - albuterol HFA (PROVENTIL HFA, VENTOLIN HFA) 90 mcg/actuation inhaler - diltiazem CD (CARDIZEM CD, CARTIA XT) 240 mg 24 hr capsule - ALPRAZolam (XANAX) 0.5 mg tablet - fluocinolone (SYNALAR) 0.025 % ointment - COMPOUNDED PRESCRIPTION - polyethylene glycol 3350 17 gram packet - vit A,C,Y-Uaei-Vtvwqr 7,160-113-100 rfez-pn-oxbm tab - guaiFENesin (MUCINEX) 1,200 mg TM12 - cetirizine (ZYRTEC) 10 mg tablet - CHOLECALCIFEROL (VITAMIN D3) 1,000 UNIT CAP - omeprazole(PRILOSEC 20 MG CAP) - COMPOUNDED PRESCRIPTION - PERCOGESIC 30 MG-325 MG TAB Review of Systems CONSTITUTIONAL: No fevers, chills night sweats, unintended weight loss CARDIOVASCULAR: No chest pain, dyspnea, palpitations, orthopnea, PND, ankle edema. PULM: No dyspnea, unexplained cough. GI: No dysphagia/odynophagia, problematic reflux, constipation, diarrhea, changes in stool habits, hematochezia, melena. : No new urinary complaints, including dysuria, gross hematuria or pyuria. NEURO: No new balance problems, peripheral weakness/paresthesias or numbness of concern. Physical Exam BP 136/64 (BP Site: Left Arm, BP Position: Sitting, BP Cuff Size: Regular Adult) Pulse 97 Resp 12 Ht 160 cm (5' 3) Wt 73.9 kg (163 lb) SpO2 96% BMI 28.87 kg/m? General appearance: Well appearing, alert, in no acute distress, well nourished. Skin: Skin color, texture, turgor normal, no suspicious rashes or lesions Head: Normocephalic, no masses, lesions, tenderness or abnormalities Eyes: Anicteric sclera. Pupils are equally round and reactive to light. Extraocular movements are intact. Lungs: Lungs clear to auscultation. No wheezing, rhonchi, rales Heart: RRR without murmur, gallop, or rubs. Extremities: No deformities, edema, skin discoloration, clubbing or cyanosis. Good capillary refill. ASSESSMENT/PLAN: 1. Medicare annual wellness visit, subsequent - ICD9: V70.0, ICD10: Z00.00 (primary diagnosis) - Encouraged monthly Breast Self Exam - Follow up for annual exam in one year. 2. Anxiety attack - ICD9: 300.01, ICD10: F41.0 Refilled - ALPRAZOLAM 0.5 MG TABLET 3. Gastroesophageal reflux disease without esophagitis - ICD9: 530.81, ICD10: K21.9 - Discussed lifestyle modifications including losing weight, limiting caffeine, no meals three hours before sleep and head of bed elevation 4. Mild intermittent asthma without complication - ICD9: 493.90, ICD10: J45.20 Mild intermittent Asthma stable - Avoidance of triggers recommended 5. Mixed hyperlipidemia - ICD9: 272.2, ICD10: E78.2 Discussed risk of her overly high LDL and the improtance on medication but she is not willing to consider at this point. 6. Ocular migraine - ICD9: 346.80, ICD10: G43.109 7. Breast cancer screening by mammogram - ICD9: V76.12, ICD10: Z12.31 - Encouraged monthly BSE - Follow up for annual exam in one year. - MIKE SCREENING 8. Need for vaccination - ICD9: V05.9, ICD10: Z23 - VARICELLA-ZOSTER GLYCOE VACC-AS01B ADJ(PF) 50 MCG/0.5 ML IM SUSP, KIT 9. Palpitations - ICD9: 785.1, ICD10: R00.2 - DILTIAZEM SR 240 MG 24 HR CAP MERI ANDRE MD CNOV Observed: 09/12/2017 Status: COMPLETED Source: [place] 10:00 AM [facility] REPOSITORY Office Visit (INTMWS) PHIL OLSEN ([id number]) 1945 F Date Time Provider Department 09/12/17 10:00 AM MERI ANDRE INTRalphWS During your visit today, we recorded the following information about you: Pulse Respiration Blood pressure Weight 97/minute 12/minute 136/64 73.9 kg Height 1.6 m MERI ANDRE MD 09/12/2017 1:09 PM Signed Welcome To Medicare Visit Medical B eligibility date age 68 Date of last exam none in the past year PAST MEDICAL HISTORY Diagnosis Date - Myalgia and myositis, unspecified - Tumors of body of uterus, delivered, with mention of complication - Unspecified asthma(493.90) PAST SURGICAL HISTORY Procedure Laterality Date - APPENDECTOMY - COLONOSCOPY W/BX 09/30/09 melanosis coli - EGD W/O [facility] SPECIMEN W/BX 09/30/09 gastritis - PAST SURGICAL HISTORY OF 2000 discectomy - PAST SURGICAL HISTORY OF both eyes Advair Diskus [Fluticasone-Salmeterol]; Celebrex [Celecoxib] Medications reviewed: Yes FAMILY HISTORY Problem Relation Age of Onset - Cancer Mother uterine SOCIAL HISTORY: Social History Marital status: Spouse name: Ramiro Years of education: Number of children: 3 Occupational History Occupation Employer Comment Retired Social History Main Topics Smoking status: Never Smoker Smokeless tobacco: Never Used Alcohol use: Yes Comment: Seldom Drug use: No Sexual activity: Yes Partners with: Male Phil denies regular aerobic exercise because of her back . She watches her diet for sodium, low fat and low cholesterol most of the time. List of current specialists seen: Eye- Dr Mcdonald in [place]. 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 Depression screen She in the past two weeks denies having felt down, depressed, hopeless or with little interest or pleasure in doing things. Functional Ability/Safety Screen 1. Was the patient's timed Up and Go test unsteady or longer than 30 seconds? No 2. Does the patient need help with the phone, transportation, shopping,preparing meals, housework, laundry, medications or managing money? No 3. Does your home have rugs in the hallway, lack of grab bars in the bathroom, lack of handrails on the stairs or have poor lighting? No Hearing Evaluation: normal PHYSICAL EXAM BP 136/64 (BP Site: Left Arm, BP Position: Sitting, BP Cuff Size: Regular Adult) Pulse 97 Resp 12 Ht 160 cm (5' 3) Wt 73.9 kg (163 lb) SpO2 96% BMI 28.87 kg/m? Alert and oriented X 3: YES Body mass index is 28.87 kg/m?. Visual acuity: normal, she has macular degeneration so she has to keep checking it. ASSESSMENT/PLAN: 71 year old female The following prevention plan was discussed during the office visit and provided to the patient: - Glaucoma screening - Lipid panel MERI ANDRE MD Reason for Visit Patient presents with: Established Patient: medicare wellness visit Phil Olsen is a 71 year old female who presents here today for Above Complaints.. Health Maintenance DTAP,TDAP,TD(1 - Tdap) ZOSTER VACCINE (SHINGRIX)(1 of 2) MAMMOGRAM HPI Her LDL is 181, HDL is 40 and total is 261, she does not want to a statin at all. Says she has longevity on dad and Moms side and heart disease, Stroke does not run in her family. One aunt did have a stroke. These was a little improvement in the lipids but she notes she had been on a fast from foods that were cookies or pastries or other desserts type of foods. Asthma is well controlled in this weather No problem-specific Assessment AND Plan notes found for this encounter. PAST MEDICAL HISTORY Diagnosis Date - Myalgia and myositis, unspecified - Tumors of body of uterus, delivered, with mention of complication - Unspecified asthma(493.90) PAST SURGICAL HISTORY Procedure Laterality Date - APPENDECTOMY - COLONOSCOPY W/BX 09/30/09 melanosis coli - [facility]/BX 09/30/09 gastritis - PAST SURGICAL HISTORY OF 2000 discectomy - PAST SURGICAL HISTORY OF both eyes FAMILY HISTORY Problem Relation Age of Onset - Cancer Mother uterine Social History Substance Use Topics - Smoking status: Never Smoker - Smokeless tobacco: Never Used - Alcohol use Yes Comment: Seldom Past medical history, appointments, medications, allergies reviewed. Pertinent Lab/Diagnostic Studies are reviewed and discussed today Current Outpatient Prescriptions: - montelukast (SINGULAIR) 10 mg tablet - diclofenac, EC, (VOLTAREN) 50 mg EC tablet - ipratropium bromide (ATROVENT) 42 mcg (0.06 %) nasal spray - albuterol HFA (PROVENTIL HFA, VENTOLIN HFA) 90 mcg/actuation inhaler - diltiazem CD (CARDIZEM CD, CARTIA XT) 240 mg 24 hr capsule - ALPRAZolam (XANAX) 0.5 mg tablet - fluocinolone (SYNALAR) 0.025 % ointment - COMPOUNDED PRESCRIPTION - polyethylene glycol 3350 17 gram packet - vit A,C,X-Hxxm-Grgfmj 7,160-113-100 fjje-qv-emec tab - guaiFENesin (MUCINEX) 1,200 mg TM12 - cetirizine (ZYRTEC) 10 mg tablet - CHOLECALCIFEROL (VITAMIN D3) 1,000 UNIT CAP - omeprazole(PRILOSEC 20 MG CAP) - COMPOUNDED PRESCRIPTION - PERCOGESIC 30 MG-325 MG TAB Review of Systems CONSTITUTIONAL: No fevers, chills night sweats, unintended weight loss CARDIOVASCULAR: No chest pain, dyspnea, palpitations, orthopnea, PND, ankle edema. PULM: No dyspnea, unexplained cough. GI: No dysphagia/odynophagia, problematic reflux, constipation, diarrhea, changes in stool habits, hematochezia, melena. : No new urinary complaints, including dysuria, gross hematuria or pyuria. NEURO: No new balance problems, peripheral weakness/paresthesias or numbness of concern. Physical Exam BP 136/64 (BP Site: Left Arm, BP Position: Sitting, BP Cuff Size: Regular Adult) Pulse 97 Resp 12 Ht 160 cm (5' 3) Wt 73.9 kg (163 lb) SpO2 96% BMI 28.87 kg/m? General appearance: Well appearing, alert, in no acute distress, well nourished. Skin: Skin color, texture, turgor normal, no suspicious rashes or lesions Head: Normocephalic, no masses, lesions, tenderness or abnormalities Eyes: Anicteric sclera. Pupils are equally round and reactive to light. Extraocular movements are intact. Lungs: Lungs clear to auscultation. No wheezing, rhonchi, rales Heart: RRR without murmur, gallop, or rubs. Extremities: No deformities, edema, skin discoloration, clubbing or cyanosis. Good capillary refill. ASSESSMENT/PLAN: 1. Medicare annual wellness visit, subsequent - ICD9: V70.0, ICD10: Z00.00 (primary diagnosis) - Encouraged monthly Breast Self Exam - Follow up for annual exam in one year. 2. Anxiety attack - ICD9: 300.01, ICD10: F41.0 Refilled - ALPRAZOLAM 0.5 MG TABLET 3. Gastroesophageal reflux disease without esophagitis - ICD9: 530.81, ICD10: K21.9 - Discussed lifestyle modifications including losing weight, limiting caffeine, no meals three hours before sleep and head of bed elevation 4. Mild intermittent asthma without complication - ICD9: 493.90, ICD10: J45.20 Mild intermittent Asthma stable - Avoidance of triggers recommended 5. Mixed hyperlipidemia - ICD9: 272.2, ICD10: E78.2 Discussed risk of her overly high LDL and the improtance on medication but she is not willing to consider at this point. 6. Ocular migraine - ICD9: 346.80, ICD10: G43.109 7. Breast cancer screening by mammogram - ICD9: V76.12, ICD10: Z12.31 - Encouraged monthly BSE - Follow up for annual exam in one year. - MIKE SCREENING 8. Need for vaccination - ICD9: V05.9, ICD10: Z23 - VARICELLA-ZOSTER GLYCOE VACC-AS01B ADJ(PF) 50 MCG/0.5 ML IM SUSP, KIT 9. Palpitations - ICD9: 785.1, ICD10: R00.2 - DILTIAZEM SR 240 MG 24 HR CAP MERI ANDRE MD Referring Provider: MERI ANDRE [[id number]] Allergies As of Date: 09/12/2017 Noted Allergy Reaction ADVAIR DISKUS (FLUTICASONE-SALMET*05/23/2005 CELEBREX (CELECOXIB) 05/22/2005 Date Reviewed: 09/12/2017 Reviewed by: Sasha Morgan LPN - Fully Assessed Reason for Visit: Established Patient [175] Cmt: medicare wellness visit Primary Visit Diagnosis:Medicare annual wellness visit, subsequent [Z00.00] Other Visit Diagnoses:Anxiety attack [F41.0] Gastroesophageal reflux disease without esophagitis [K21.9] Mild intermittent asthma without complication [J45.20] Mixed hyperlipidemia [E78.2] Ocular migraine [G43.109] Breast cancer screening by mammogram [Z12.31] Need for vaccination [Z23] Palpitations [R00.2] Order(s):MIKE SCREENING [[id number]] Order #: [id number] FUTURE diltiazem CD (CARDIZEM CD, CARTIA XT) 240 mg 24 hr capsuleTake 1 capsule by mouth once daily.Disp: 90 capsuleRfl: 3 ALPRAZolam (XANAX) 0.5 mg tabletTake 1 tablet by mouth daily at bedtime for 90 days.Disp: 30 tabletRfl: 5 zoster vaccine, recombinant, adjuvanted, (SHINGRIX) 50 mcg/0.5 mL injectionInject 0.5 mL intramuscularly one time only for 1 dose.Disp: 0.5 mLRfl: 0 Prescriptions as of 09/12/2017 Sig: DILTIAZEM SR 240 MG 24 HR CAP Take 1 capsule by mouth once * ALPRAZOLAM 0.5 MG TABLET Take 1 tablet by mouth daily * VARICELLA-ZOSTER GLYCOE VACC-* Inject 0.5 mL intramuscularly* MONTELUKAST 10 MG TABLET Take 1 tablet by mouth once d* DICLOFENAC SODIUM 50 MG TABLE* Take 1 tablet by mouth twice * IPRATROPIUM BROMIDE 42 MCG (0* Use 1 Divide in the nose twice* ALBUTEROL SULFATE HFA 90 MCG/* Inhale 2 Puffs as instructed * FLUOCINOLONE 0.025 % TOPICAL * Use twice daily sparingly as * COMPOUNDED PRESCRIPTION Oil of oregano- a couple drops POLYETHYLENE GLYCOL 3350 17 G* Take 1 Packet by mouth once d* VITAMINS A,C,I-NFMI-SFSETD 7* Take by mouth. * GUAIFENESIN ER 1,200 MG TABLE* Take 1 tablet by mouth twice * * CETIRIZINE 10 MG TABLET Take 1 tablet by mouth once d* * CHOLECALCIFEROL (VITAMIN D3) * 2 caps daily * PRILOSEC 20 MG CAPSULE,DELAYE* Take one(1) capsule daily. * COMPOUNDED PRESCRIPTION relive program * PERCOGESIC 30 MG-325 MG TABLET as necessary Problem List As Of Date 09/12/2017 Noted Resolved Mild intermittent asthma without complication [*INVALID FOR* ESOPHAGEAL REFLUX [K21.9] INVALID FOR* Blood in stool [K92.1] INVALID FOR*09/19/2015 Unspecified, Hemorrhage of Gastrointestinal Tra*INVALID FOR* Hemorrhage of rectum and anus [K62.5] INVALID FOR*09/19/2015 Acute Gastritis without Mention of Hemorrhage [*INVALID FOR* Seborrheic Keratoses [L82.1] INVALID FOR* Milial Cysts [L72.0] INVALID FOR* Solar Lentigines [L81.4] INVALID FOR* Melanocytic nevi of trunk [D22.5] INVALID FOR* Actinic skin damage [L57.8] INVALID FOR* Eczema intertrigo [L30.4] INVALID FOR* Xerosis cutis [L85.3] INVALID FOR* Pruritus of skin [L29.9] INVALID FOR* Perianal cyst [K62.89] INVALID FOR* Hyperlipidemia [E78.5] INVALID FOR*11/10/2015 Allergic sinusitis [J30.9] INVALID FOR* Atopic rhinitis [J30.9] INVALID FOR*09/19/2015 Mixed hyperlipidemia [E78.2] INVALID FOR* Ocular migraine [G43.109] INVALID FOR* Prescriptions ordered this encounter Disp Refills Start End DILTIAZEM SR 240 MG 24 HR CAP 90 c* 3 09/12/2017 Route: ORAL Sig: Take 1 capsule by mouth once daily. ALPRAZOLAM 0.5 MG TABLET 30 t* 5 09/12/2017 12/11/2017 Class: Print RX Route: ORAL Sig: Take 1 tablet by mouth daily at bedtime for 90 days. VARICELLA-ZOSTER GLYCOE VACC-AS01B A* 0.5 * 0 09/12/2017 09/12/2017 Class: Print RX Route: INTRAMUSCULA Sig: Inject 0.5 mL intramuscularly one time only for 1 dose. Medications Discontinued During This Encounter diltiazem CD (CARDIZEM CD, CARTIA XT* 90 c* 3 07/06/2016 09/12/2017 Cmt: This prescription was filled today(07/04/2016). Any refills authorized will be placed on file. Sig: TAKE ONE CAPSULE BY MOUTH DAILY Disc: Reason for discontinue is not on file. ALPRAZolam (XANAX) 0.5 mg tablet 30 t* 5 06/29/2016 09/12/2017 Class: Print RX Route: ORAL Sig: Take 1 tablet by mouth daily at bedtime. Disc: Reason for discontinue is not on file. Encounter Status:Closed by MERI ANDRE MD on 09/12/17 LIPID PANEL, BASIC Collected: 09/05/2017 Status: F Source: [place] 8[facility] RE[facility] TYPE CODE TESTS RESULT OUT OF REFERENCE UNITS RANGE LAB CHOL <200 mg/dL Cholesterol High 261 Result Comment: <200 mg/dL, Desirable 200-239 mg/dL, Borderline high >239 mg/dL, High LAB TRIGLY <150 mg/dL Triglyceride High 200 Result Comment: <150 mg/dL, Normal 150-199 mg/dL, Borderline high 200-499 mg/dL, High >499 mg/dL, Very high LAB HDL >39 mg/dL HDL-Cholesterol 40 Result Comment: 40-59 mg/dL, Acceptable >59 mg/dL, High: Negative risk factor for coronary heart disease <40 mg/dL, Low: Positive risk factor for coronary heart disease LAB LDL <100 mg/dL LDL-Cholesterol High 181 Result Comment: <100 mg/dL, Optimal 100-129 mg/dL, Near optimal/above optimal 130-159 mg/dL, Borderline high 160-189 mg/dL, High >189 mg/dL, Very high Secondary prevention optimal LDL Cholesterol levels are recommended to be < 70 mg/dL LAB NONHDL <130 mg/dL Non HDL High Cholesterol 221 Result Comment: <130 mg/dL, Optimal 130-159 mg/dL, Near optimal/above optimal 160-189 mg/dL, Borderline high 190-219 mg/dL, High >219 mg/dL, Very high Secondary prevention optimal non HDL Cholesterol levels are recommended to be < 100 mg/dL LAB FT hrs Fasting Time 14 LAB VLDL <30 mg/dL High VLDL Cholesterol 40 LAB TCHDL <5.10 High TC:HDL Ratio 6.53 LAB LDLHDL <2.54 High LDL:HDL Ratio 4.53 Result Comment: Reference: 1. National Cholesterol Education Program ATP III Guideline At-A-Glance Quick Desk Reference: National Heart, Lung, and Blood [place]. National Institutes of Health. 2001: NIH Publication No. 01-3305. 2. An International Atherosclerosis Society position paper: global recommendations for the management of dyslipidemia: executive summary, Atherosclerosis. 2014: 232(2):410-413. Performed By: #### LIPB #### [facility] [address] [place], [place] [address] CNPTOUTREACH Observed: 08/27/2017 Status: COMPLETED Source: [place] 12:00 AM [facility] REPOSITORY Patient Outreach (FAMPST) PHIL OLSEN ([id number]) 1945 F Date Time Provider Department 08/27/17 MERI ANDRE During your visit today, we recorded the following information about you: Allergies As of Date: 08/27/2017 Noted Allergy Reaction ADVAIR DISKUS (FLUTICASONE-SALMET*05/23/2005 CELEBREX (CELECOXIB) 05/22/2005 Date Reviewed: 08/01/2016 Reviewed by: Sasha Morgan LPN - Fully Assessed Visit Diagnosis:Medication management [Z79.899] Order(s):LIPID PANEL BASIC [SQLIPB] Order #: [id number] FUTURE Prescriptions as of 08/27/2017 Sig: X MONTELUKAST 10 MG TABLET Take 1 tablet by mouth once d* IPRATROPIUM BROMIDE 42 MCG (0* Use 1 Divide in the nose twice* ALBUTEROL SULFATE HFA 90 MCG/* Inhale 2 Puffs as instructed * X DILTIAZEM SR 240 MG 24 HR CAP TAKE ONE CAPSULE BY MOUTH GAVIN* X DICLOFENAC SODIUM 50 MG TABLE* Take 1 tablet by mouth twice * X ALPRAZOLAM 0.5 MG TABLET Take 1 tablet by mouth daily * FLUOCINOLONE 0.025 % TOPICAL * Use twice daily sparingly as * COMPOUNDED PRESCRIPTION Oil of oregano- a couple drops POLYETHYLENE GLYCOL 3350 17 G* Take 1 Packet by mouth once d* VITAMINS A,C,B-EFEJ-CGCSSD 7* Take by mouth. * GUAIFENESIN ER 1,200 MG TABLE* Take 1 tablet by mouth twice * * CETIRIZINE 10 MG TABLET Take 1 tablet by mouth once d* * CHOLECALCIFEROL (VITAMIN D3) * 2 caps daily * PRILOSEC 20 MG CAPSULE,DELAYE* Take one(1) capsule daily. * COMPOUNDED PRESCRIPTION relive program * PERCOGESIC 30 MG-325 MG TABLET as necessary Problem List As Of Date 08/27/2017 Noted Resolved Mild intermittent asthma without complication [*INVALID FOR* ESOPHAGEAL REFLUX [K21.9] INVALID FOR* Blood in stool [K92.1] INVALID FOR*09/19/2015 Unspecified, Hemorrhage of Gastrointestinal Tra*INVALID FOR* Hemorrhage of rectum and anus [K62.5] INVALID FOR*09/19/2015 Acute Gastritis without Mention of Hemorrhage [*INVALID FOR* Seborrheic Keratoses [L82.1] INVALID FOR* Milial Cysts [L72.0] INVALID FOR* Solar Lentigines [L81.4] INVALID FOR* Melanocytic nevi of trunk [D22.5] INVALID FOR* Actinic skin damage [L57.8] INVALID FOR* Eczema intertrigo [L30.4] INVALID FOR* Xerosis cutis [L85.3] INVALID FOR* Pruritus of skin [L29.9] INVALID FOR* Perianal cyst [K62.89] INVALID FOR* Hyperlipidemia [E78.5] INVALID FOR*11/10/2015 Allergic sinusitis [J30.9] INVALID FOR* Atopic rhinitis [J30.9] INVALID FOR*09/19/2015 Mixed hyperlipidemia [E78.2] INVALID FOR* Ocular migraine [G43.109] INVALID FOR* Encounter Status:Closed by EPIC, PRODUSER on 12/13/17 ALLERGIES ALLERGIES DATE TYPE / CODE NAME / CODE REACTION SEVERITY SOURCE 02/04/2018 Drug adhesive Rash Unknown [facility]/416 tape/[id number]( [facility] [id number](SNOM RXNORM) Repository ED CT) 02/04/2018 Drug salmeterol/F0060 Itching Unknown [facility]/416 98690(RXNORM) [facility] 850119(SNOM Repository ED CT) 02/04/2018 Drug fluticasone/F006 Itching Unknown [facility]/416 499925(RXNORM) [facility] 027275(SNOM Repository ED CT) 02/04/2018 Drug celecoxib/H51474 Itching Unknown [facility]/416 7731(RXNORM) [facility] 130440(SNOM Repository ED CT) 05/23/2005 DRUG/[id number] FLUTICASONE-SALM [facility] 003(SNOMED ETEROL [facility] [place] [facility]) Repository 05/22/2005 DRUG CELECOXIB [facility] INGREDI/419 [address] [place] 725388(SNOM Repository ED CT) ENCOUNTERS ENCOUNTERS ADMIT/DISCHARGE ACCOUNT ADMITTING ENCOUNTER LOCATION SOURCE NUMBER CLASS 02/04/2018/02/05/20 [id number] [facility] [place] [facility] [address] [place] [address] ing:SDCRoom: Repository AC03 01/31/2018 [id number] Ambulatory [facility] ing:[facility] Repository 01/30/2018 [id number] Ambulatory BMSBuilding:Jose Hoffman MS.[facility] Repository 01/30/2018 [id number] Ambulatory [facility] ing:[facility] Repository 01/28/2018/01/29/20 [id number] Ambulatory BMSBuilding:B Yasmin [address] MS.[facility] Repository 01/25/2018/01/28/20 [id number] Ambulatory [address] Repository 01/21/2018/01/22/20 [id number] [place], Ambulatory [address] Repository 12/31/2017/01/02/20 [id number] Ambulatory [address] Repository 11/05/2017/11/06/19 [id number] Ambulatory [address] Repository 10/16/2017/10/18/19 [id number] Ambulatory [address] Repository 10/16/2017/10/17/19 [id number] Ambulatory [address] Repository 09/12/2017/09/14/19 [id number] Ambulatory [address] Repository 09/05/2017/09/06/19 [id number] Ambulatory [address] Repository PAYERS PAYERS ENCOUNTER GUARANTOR PAYER SUBSCRIBER SOURCE 02/04/2018 RAMIRO OLSEN Primary PHILELVIA Hoffman [id number] Insurance:MEDICARE HOSTETLERDOB: [address], PART A [facility] [id number] [address]Qdg: Number: Repository [id number] () Date:2018-01-16 02/04/2018 Secondary PHILELVIA Hoffman Insurance:[facility]: [facility] [id number] Hospital Number: Repository [id number] Date:[id number] DORI MARTÍNEZ [address]CS: 02/04/2018 Tertiary NOT PAM Hoffman Insurance:SELF PAY [facility] Number: Effective Repository Date:2018-01-16 01/31/2018 RAMIRO OLSEN Primary PHIL Hoffamn Jr.[id number] Insurance:MEDICARE HOSTETLERDOB: [address] A [facility] [id number] [address]Hkh: Number: Repository [id number] (HP) Date:2018-01-28 01/31/2018 Secondary PHIL [place] Insurance:EVERENCE HOSTETLERDOB: [facility] [id number] Hospital Number: Repository [id number] Date:[id number] [facility] [address] [place] [address]ZW: 01/31/2018 Tertiary NOT GIVENUNK Yasmin Insurance:SELF PAY [facility] Number: Effective Repository Date:2018-01-28 01/30/2018 RAMIRO Hoffman Jr[id number] Insurance:MEDICARE HOSTETLERDOB: [address] [id number] Ana Health Center [address]Owx: Number: Repository [id number] (HP) Date:2018-01-28 01/30/2018 Secondary PHIL Yasmin Insurance:EVERENCE HOSTETLERDOB: [facility] [id number] Hospital Number: Repository [id number] Date:1835-19-27[address] [place] [address]ME: 01/30/2018 Tertiary NOT GIVENUNK [place] Insurance:SELF PAY [facility] Number: Effective Repository Date:2018-01-30 01/30/2018 RAMIRO OLSEN Primary PHIL Hoffman Jr[id number] Insurance:MEDICARE HOSTETLERDOB: [address] A [facility] [id number] Ana Health Center [address]Kkn: Number: Repository [id number] (HP) Date:2018-01-28 01/30/2018 Secondary PHIL Yasmin Insurance:EVERENCE HOSTETLERDOB: [facility] [id number] Hospital Number: Repository [id number] Date:7078-12-10[address] [address]AB: 01/30/2018 Tertiary NOT GIVENUNK Yasmin Insurance:SELF PAY [facility] Effective Repository Date:2018-01-28 01/28/2018 RAMIROHermila AGUILATYLER Primary PHIL Hoffman Jr[id number] Insurance:MEDICARE [facility]: [address] PART A [facility] [id number] [address]Pvj: Number: Repository [id number] () Date:2018-01-27 01/28/2018 Secondary PHILELVIA Hoffman Insurance:EVERENCE TYLERDOB: [facility] [id number] Hospital Number: Repository [id number] Date:1871-51-25[address] [address]FO: 01/28/2018 Tertiary NOT GIVENUNK [place] Insurance:SELF PAY [facility] Number: Effective Repository Date:2018-01-28
== END ==
PROVIDERS: Family Provider Internal Medicine; PCP Internal Medicine; Referring Provider Internal Medicine Cardiovascular Disease; Visit Provider Internal Medicine Cardiovascular Disease
DX: Z01.810 Encounter for preprocedural cardiovascular examination (principal); I10 Essential (primary) hypertension; R00.0 Tachycardia, unspecified; E78.5 Hyperlipidemia, unspecified
CPT/HCPCS: 36415; 80061; 80076; 93306

== ENCOUNTER → 2018-01-31 09:20 | Outpatient (CLI) | payer MEDICARE, OTHER, SELFPAY ==
[2018-01-28 14:23] VITALS: BMI 28.8
--- NOTE | 2018-01-31 09:22 | STE_ITS ---
Reason For Study: Pre-Op Stress Results Protocol: Dobutamine Stress Echo Maximum Predicted HR: 150 bpm Target HR: 128 bpm % Maximum Predicted HR: 84 % DurationHeart Rate Stage (mm:ss) (bpm) BP Comment Baseline 88 153/88No Chest Pain DSE 10 MCG 3:02 90 138/86No Chest Pain DSE 20 MCG 3:00 109 153/86No Chest Pain DSE 30 MCG 3:00 118 171/74No Chest Pain DSE 40 MCG 2:19 126 151/79No Chest Pain Recovery 96 141/74No Chest Pain Stress Duration: 11:21 mm:ss Maximum Stress HR: 126 bpm METS: 1 Baseline Echocardiogram Findings The estimated ejection fraction is 65 %. Stress Echo Wall motion Data Resting WM Intermediate WM Stress WM Resting Wall Motion Wall Motion Stress No regional wall motion No regional wall motion abnormalities noted. abnormalities noted. EKG Data Normal intervals are noted. The patient was titrated from 10 mcg to a maximum of 40 mcg of dobutamine during the stress. The maximum heart rate attained was 129 beats per minute. This was 86% of maximum predicted heart rate. During dobutamine infusion, there were no ST or T wave changes noted to suggest ischemia. No arrhythmias noted. No clinical angina was noted. Interpretation Summary The estimated ejection fraction is 65 %. Normal, adequate, dobutamine echocardiogram. Negative for ischemia by EKG and echocardiographic criteria. No anginal symptoms noted. No arrhythmias noted. Appropriate blood pressure response to dobutamine. Final LVEF is 75%. Test terminated due to the attainment of target heart rate. No complications. Ordering Physician: Romeo Asencio Referring Physician: Romeo Asencio Performed By: Keli Mclaughlin, RDCS, RVT
--- OUTSIDE RECORDS SUMMARY | 2018-03-28 04:08 | XMS RPT_ITS ---
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 [address]VB: 01/31/2018 Tertiary NOT GIVENUNK Yasmin Insurance:SELF PAY [facility] Number: Effective Repository Date:2018-01-28 01/30/2018 RAMIRO Hoffman Jr.[id number] Insurance:MEDICARE HOSTETLERDOB: [address] [id number] [facility] [address]Rzk: Number: Repository [id number] (HP) Date:2018-01-28 01/30/2018 Secondary PHIL Yasmin Insurance:EVERENCE HOSTETLERDOB: [facility] [id number] Hospital Number: Repository [id number] Date:0825-90-29[address] [place] [address]II: 01/30/2018 Tertiary NOT GIVENUNK Holden Insurance:SELF PAY [facility] Number: Effective Repository Date:2018-01-30 01/30/2018 RAMIRO OLSEN Primary PHIL Hoffman Jr.[id number] Insurance:MEDICARE HOSTETLERDOB: [address] A [facility] [id number] [facility] [address]Slw: Number: Repository [id number] (HP) Date:2018-01-28 01/30/2018 Secondary PHIL Yasmin Insurance:EVERENCE HOSTETLERDOB: [facility] [id number] Hospital Number: Repository [id number] Date:0455-84-93[address] [address]IE: 01/30/2018 Tertiary NOT GIVENUNK Yasmin Insurance[facility]LF [facility] Effective Repository Date:2018-01-28 01/28/2018 RAMIROHermila AGUILATYLER Primary PHIL Hoffman Jr[id number] Insurance:MEDICARE [facility] [address] PART A [facility] [id number] [address]Wac: Number: Repository [id number] () Date:2018-01-27 01/28/2018 Secondary PHILELVIA Hoffman Insurance:EVERENCE TYLERDOB: [facility] [id number] Hospital Number: Repository [id number] Date:9915-03-07[address] [address]II: 01/28/2018 Tertiary NOT GIVENUNK Holden Insurance:SELF PAY [facility] Number: Effective Repository Date:2018-01-28
== END ==
PROVIDERS: Family Provider Internal Medicine; PCP Internal Medicine; Referring Provider Internal Medicine Cardiovascular Disease; Visit Provider Internal Medicine Cardiovascular Disease
DX: Z01.810 Encounter for preprocedural cardiovascular examination (principal); R00.0 Tachycardia, unspecified; E78.5 Hyperlipidemia, unspecified; I10 Essential (primary) hypertension
CPT/HCPCS: 93017; 93350; J7040; A4216

== ENCOUNTER 2018-02-04 08:48 | Day surgery (SDC) | payer MEDICARE, OTHER, SELFPAY ==
[2018-01-28 14:23] VITALS: BMI 28.8
[2018-02-04] VITALS (10 sets, daily range): BP systolic 94–136; BP diastolic 69–81; PULSE 68–81; RESP 14–18; TEMP 36–36.9; O2SAT 92–99; BMI 28.4
[2018-02-04] MEDS: Cefazolin 1 GM/50 ML BAG IV (10:54)
--- NOTE | 2018-02-04 11:00 | RAD_ITS ---
STUDY: X-RAY - RIGHT KNEE REASON FOR EXAM: Female, 72 years old. Right knee arthroscopy TECHNIQUE: 1 view view(s) of the knee. COMPARISON: None. FINDINGS: The C-arm is used. There is a metallic density (nail) projecting over the proximal ends of the fibula and tibia and 2 curvilinear metallic densities (wires) projecting over the distal ends of the femur Electronically Signed: Je Ramirez MD at 5:39 EST Tel , Service support , RAD/Knee 1 or 2 Views
[2018-02-04] MEDS: Bupiv/Epi 0.5% Mpf 30 ML Vial INTRAARTIC (11:30)
[2018-02-04] MEDS: Bupivacaine Mpf 0.5% 30 ML VIAL (11:43)
[2018-02-04] MEDS: Triamcinolone Acetonide 40 MG/ML Vial (11:43)
--- NOTE | 2018-02-04 12:01 | OP.PCM_ITS ---
Report of Operation Date of Procedure: 02/04/18 Pre-Operative Diagnosis: Right knee medial meniscus tear. Right knee medial tibial plateau stress fracture. Right knee chondromalacia. Left knee osteoarthritis Post-Operative Diagnosis: Right knee medial meniscus tear. Right knee medial tibial plateau stress fracture. Right knee chondromalacia. Right knee medial plica. Left knee osteoarthritis Surgery/Procedure Performed:: Arthroscopic right knee surgery. 1. Partial medial meniscectomy. 2. Patellofemoral and medial compartment chondroplasty. 3. Arthroscopic assisted fixation of the medial tibial plateau fracture. 4. Plica resection medial. 5. Left knee cortical steroid injection Description of Surgical Findings:: See operative report show host/hostess: Jaime Hale Type of Anesthesia:: General Anesthesiologist: Zachariah Smiley Special Medications: 2 g Ancef Specimen's removed: None Estimated Blood Loss (mL): 5 Fluids Replaced: 1100 ml Description of Procedure: On the date of the procedure, the patient's L lower extremity was marked in the preoperative area. Patient was brought back to the operating room where they were transferred to the bed. Anesthesia assumed control of the C-spine airway and administered anesthetic. All bony prominences were identified and well- padded and the L leg was placed in the arthroscopic leg bailey. The contralateral leg was then draped over the bed and well-padded. There was padding underneath both sciatic nerves. The foot of the bed was then dropped and the L leg was prepped in a sterile fashion. The surgeon then scrubbed. Upon reentering the room, the operative leg was draped in a standard orthopedic fashion. A timeout was called, everyone agreed upon the side, the site, the procedure to be performed, patient's identity and antibiotics given. Incisions were marked out for the medial and lateral infrapatellar portals. Esmarch bandage was then used to exsanguinate the leg and tourniquet was placed at 250 mmHg. At this time, the lateral portal incision was made in a vertical fashion. The trocar was placed into the joint. The camera was then placed and the patellofemoral joint was visualized. The patella did appear to have grade 2-3 chondral changes. The trochlea appeared to have grade 1-2 chondral changes. We then directed our attention to the medial gutter where there was no foreign body was noted however, and it getting over to the medial compartment and gutter we did note a large medial plica.. Then directed our attention to the medial joint compartment. There were grade 2 chondral changes on the medial distal femur, grade 3 with areas of grade 4 posterior medially chondral changes on the medial tibial plateau. The medial meniscus had Plex tear of the posterior medial meniscus. The medial portal was then placed under direct visualization using a spinal needle an 11 blade scalpel. Once this was done a probe was placed in the joint and the meniscus was probed finding the complex tear. There were cartilage flaps in the medial distal femoral condyle with free edges. The biters and lalo were then used sequentially to debriding get rid of any free edges that could be a source of pain and catching in the meniscus tear. The shaver was then used to clean up the cartilage flaps with free edges back to stable edges. Once we felt medial meniscus tear was adequately debrided, we again visualized the joint and noted the meniscus tear was adequately debrided. Attention was then turned towards the notch where the anterior cruciate ligament was tacked. PCL was visualized and appeared intact. Attention was then directed towards the lateral compartment where the lateral distal femur had minimal chondral changes, the lateral proximal tibia had to chondral changes. The lateral meniscus had small tears. We then directed our attention to the lateral gutter, which was visualized and no free bodies were noted. At this time the wound was copiously irrigated out with normal saline with epinephrine. Based on the preoperative review of the patient's R knee MRI, the location of the bone marrow lesion, consistent with an insufficiency or stress fracture in the MTC was identified. Preoperative surgical planning allowed for determination of the optimal method for assessing the lesion. Intraoperatively, image fluoroscopy combined with bone targeting instrumentation from [employer] was used to guide surgical instruments into the proximity of the subchondral MTC fracture. The standard repair methodology was used to treat the subchondral bone defect in the MTC. Image fluoroscopy was utilized to confirm accurate insertion of the active port injection cannula into the subchondral fracture. After insertion, fracture stabilization was performed by injecting 2 cc of [employer] bone substitute material into the MTC. Image fluoroscopy was used to monitor the injection process and ensure injection of the bone substitute into the subchondral bone so that the bile material flowed into the fracture site to stabilize the fracture and facilitate fracture repair. After this was performed the arthroscope was placed back into the knee and a diagnostic arthroscopy was performed to ensure no intra-articular cement was encountered. None was encountered. While we were made for the cement to cure we also performed a chondroplasty of the patellofemoral compartment. Also noted on our initial diagnostic arthroscopy was a medial plica. This was debrided using the shaver. Once this was completely removed we were able to see the medial compartment and lateral compartment where no evidence of cement was noted. Wound was sam irrigated out normal saline with epinephrine. The camera was removed from the knee. The wound was closed with 4-0 nylon and 0.5% Marcaine and epinephrine were injected for local anesthetic. Once the cement had appropriately cured the trocar was removed and the portal was closed. Xeroform was placed over the incision. Sterile dressing was placed. Compressive dressing was placed. Tourniquet was let down. At this time attention was directed to the left knee. Using the inferior lateral patellar portal to milliliters of Kenalog and 4 mL of Marcaine 0.5% were injected into the left knee. Sterile conditions were used. Patient was awakened by anesthesia patient was transferred to the PACU for recovery in stable condition. Postoperative plan: Patient will be made weightbearing for 2 weeks. He will come to the office in 2 weeks for postoperative wound check and suture removal. If he is doing well that time he can follow-up as needed. The physician promotions assistant was vital throughout the duration of this case. He was helpful in positioning the patient. Is helpful in positioning the limb during the procedure as well as during the fixation of the fracture. He was also vital and closure of the wound under my direct supervision. Grafts/Implants Used: [employer] bone cement 2 mL - Complications None - Admit VTE Documentation VTE Present on Admission: No VTE Mechan Device Prophylaxis: SCD's, Thigh High VANESSA Hose VTE Pharm Prophylaxis ordered?: Yes
[2018-02-04] MEDS: Ketorolac 30 MG/ML Syringe IV (12:24)
== END 2018-02-04 14:42 | disposition home or self-care (01) ==
LOC: SDC 08:49 → AC 08:50
PROVIDERS: Family Provider Internal Medicine; PCP Internal Medicine; Referring Provider Specialist; Visit Provider Specialist
PROC: 3E0U3GB Introduction of Recombinant Bone Morphogenetic Protein into Joints, Percutaneous Approach (ICD-10-PCS; CPT 0707T; principal; 2018-02-04 10:40)
DX: S83.241A Other tear of medial meniscus, current injury, right knee, initial encounter (principal); M84.361A Stress fracture, right tibia, initial encounter for fracture; M17.0 Bilateral primary osteoarthritis of knee; M94.261 Chondromalacia, right knee; J45.909 Unspecified asthma, uncomplicated; E78.00 Pure hypercholesterolemia, unspecified; I10 Essential (primary) hypertension; K21.9 Gastro-esophageal reflux disease without esophagitis; Z79.891 Long term (current) use of opiate analgesic; Z79.51 Long term (current) use of inhaled steroids; Z79.899 Other long term (current) drug therapy; X50.3XXA Overexertion from repetitive movements, initial encounter; Y93.89 Activity, other specified; Y92.89 Other specified places as the place of occurrence of the external cause; Y99.8 Other external cause status
CPT/HCPCS: 01400; 20610; 29855; 29881; 73560; 76000; C1713; J7120; J2405

== ENCOUNTER → 2019-07-20 09:51 | Outpatient (CLI) | payer MEDICARE, OTHER, SELFPAY ==
[2019-07-13 14:14] VITALS: BMI 29.2
[2019-07-20 11:26] LABS: AST(SGOT) 15 U/L (15-37); Alanine Aminotransfer ALT/SGPT 23 U/L (13-56); Albumin, Serum 3.7 g/dL (3.2-5.0); Alkaline Phosphatase 41 U/L (45-117); Bilirubin, Direct 0.14 mg/dL (0.00-0.30); Cholesterol 268 mg/dL (200); Globulin 3.8 g/dL (2.2-4.2); High Density Lipoprotein 39 mg/dL; Protein, Total 7.5 g/dL (6.4-8.2); Triglycerides 227 mg/dL; Very Low Density Lipoprotein 45 mg/dL (5-40)
== END ==
PROVIDERS: PCP Family Medicine; Referring Provider Internal Medicine Cardiovascular Disease; Visit Provider Internal Medicine Cardiovascular Disease
DX: E78.5 Hyperlipidemia, unspecified (principal)
CPT/HCPCS: 36415; 80061; 80076

== ENCOUNTER → 2019-09-01 08:45 | Outpatient (CLI) | payer MEDICARE, OTHER, SELFPAY ==
[2019-07-13 14:14] VITALS: BMI 29.2
[2019-09-01 09:49] LABS: AST(SGOT) 14 U/L (15-37); Alanine Aminotransfer ALT/SGPT 24 U/L (13-56); Albumin, Serum 3.5 g/dL (3.2-5.0); Alkaline Phosphatase 42 U/L (45-117); Cholesterol 132 mg/dL (200); Globulin 3.6 g/dL (2.2-4.2); High Density Lipoprotein 39 mg/dL; Protein, Total 7.1 g/dL (6.4-8.2); Triglycerides 171 mg/dL; Very Low Density Lipoprotein 34 mg/dL (5-40)
== END ==
PROVIDERS: PCP Family Medicine; Referring Provider Internal Medicine Cardiovascular Disease; Visit Provider Internal Medicine Cardiovascular Disease
DX: E78.5 Hyperlipidemia, unspecified (principal)
CPT/HCPCS: 36415; 80061; 80076

== ENCOUNTER → 2020-10-25 09:31 | Outpatient (CLI) | payer MEDICARE, OTHER, SELFPAY ==
[2020-10-25 11:06] LABS: AST(SGOT) 21 U/L (15-37); Alanine Aminotransfer ALT/SGPT 34 U/L (13-56); Albumin, Serum 3.7 g/dL (3.2-5.0); Alkaline Phosphatase 41 U/L (45-117); Bilirubin, Direct 0.07 mg/dL (0.00-0.30); Cholesterol 207 mg/dL (200); Globulin 3.6 g/dL (2.2-4.2); High Density Lipoprotein 42 mg/dL; Protein, Total 7.3 g/dL (6.4-8.2); Triglycerides 153 mg/dL; Very Low Density Lipoprotein 31 mg/dL (5-40)
== END ==
PROVIDERS: PCP Family Medicine; Referring Provider Internal Medicine Cardiovascular Disease; Visit Provider Internal Medicine Cardiovascular Disease
DX: E78.5 Hyperlipidemia, unspecified (principal); E78.00 Pure hypercholesterolemia, unspecified
CPT/HCPCS: 36415; 80061; 80076

== ENCOUNTER 2023-12-03 15:07 | Outpatient (CLI) | payer MEDICARE, OTHER, SELFPAY ==
[2023-12-03 23:08] LABS: Vitamin D,25 Hydroxy 55.2 ng/mL
[2023-12-06 12:10] LABS: Vitamin D 1,25-Dihydroxy 70.7 pg/mL (24.8-81.5)
== END 2023-12-03 23:59 | disposition home or self-care (01) ==
LOC: MTLAB 15:09
PROVIDERS: PCP Family Medicine; Referring Provider Dermatology; Visit Provider Dermatology
DX: Z13.21 Encounter for screening for nutritional disorder (principal); L60.1 Onycholysis
CPT/HCPCS: 36415; 82306; 82652